=== PATIENT | male | born 1945 | race Caucasian/White ===

== ENCOUNTER 2017-08-03 17:52 | Inpatient (IN) | payer MEDICARE ==
[2017-08-03 19:43] LABS: Troponin I 0.039 ng/mL (< 0.028)
[2017-08-03 20:57] VITALS: BMI 33.5
[2017-08-03] MEDS ORDERED: Ondansetron HCl/PF 4 MG/2 ML Vial IVP PRN (21:02)
[2017-08-03] MEDS ORDERED: Acetaminophen 325 MG TAB PO PRN (21:02)
[2017-08-03] MEDS ORDERED: Ondansetron ODT 4 MG TAB SL PRN (21:02)
[2017-08-03] MEDS ORDERED: Aspirin 325 MG TAB PO SCH (21:15)
[2017-08-03] MEDS ORDERED: Dextrose 50% Abboject 50 ML SYRINGE SLOW IVP PRN (21:59)
[2017-08-03] MEDS ORDERED: Dextrose 5% in Water 1,000 ML IV PRN (21:59)
[2017-08-03] MEDS ORDERED: Gabapentin 300 MG CAP PO PRN (22:08)
[2017-08-03] MEDS ORDERED: Nitroglycerin 0.4 MG TAB (25 Tab Bottle) SL PRN (22:08)
[2017-08-03] MEDS ORDERED: HumaLOG 300 UNITS/3 ML VIAL SC PRN (22:13)
[2017-08-03] MEDS ORDERED: Furosemide 40 MG/4 ML VIAL SLOW IVP SCH (22:30)
[2017-08-03] MEDS ORDERED: Carvedilol 6.25 MG TAB PO SCH (22:30)
[2017-08-03] MEDS ORDERED: Lisinopril 5 MG TAB PO SCH (22:30)
[2017-08-03 23:12] LABS: Troponin I 0.038 ng/mL (< 0.028)
[2017-08-04 01:45] LABS: Troponin I 0.041 ng/mL (< 0.028)
[2017-08-04 05:07] LABS: #Eosinphils 0.2 thou/uL (0.0-0.7); #Lymphocytes 1.4 thou/uL (1.20-3.40); #Monocytes 0.6 thou/uL (0.11-0.59); %Basophils 0.4 % (0.0-1.0); %Eosinophils 2.8 % (0.0-10.0); %Lymphocytes 16.4 % (21.0-51.0); %Monocytes 7.5 % (0.0-10.0); Hematocrit 32.1 % (42.0-52.0); Mean Platelet Volume 8.4 fL (7.4-10.4); Red Blood Cell (RBC) Count 3.71 mill/uL (4.70-6.10); White Blood Cell (WBC) Count 8.3 thou/uL (4.8-10.8)
[2017-08-04 05:18] LABS: Anion Gap 18 mmol/L (10-20); BUN (Urea Nitrogen) 23 mg/dL (8.4-25.7); Calc. Creatinine Clearance 64 mL/min (70-130); Calcium 9.7 mg/dL (7.8-10.44); Carbon Dioxide 29 mmol/L (23-31); Chloride 99 mmol/L (98-107); Estimated GFR-MDRD 51
[2017-08-04] MEDS: Furosemide 40 MG/4 ML VIAL SLOW IVP SCH ×2 (06:33→15:49)
[2017-08-04] MEDS ORDERED: Dextrose 50% Abboject 50 ML SYRINGE SLOW IVP SCH (06:45)
[2017-08-04] MEDS: Levothyroxine Sodium 25 MCG TAB PO SCH (06:55)
[2017-08-04] MEDS ORDERED: Enoxaparin Sodium 30 MG/0.3 ML SYRINGE SC SCH (09:00)
[2017-08-04] MEDS ORDERED: FLU VACC TS2017-18 (>65YR) 0.5 ML SYRINGE IM ONE (09:00)
--- NOTE | 2017-08-04 09:00 | PDOC.FM ---
- Subjective Subjective: No acute events overnight. Occasional PACs and PVCs on the monitor, asymptomatic. Pt reports his breathing is improved since admission. Denies CP, NVDC, diaphoresis. Mild SOB, improved from admission. - Objective Vital Signs & Weight: Vital Signs (12 hours) Temp Pulse Resp BP BP Pulse Ox 08/04/17 04:04 97.7 F 89 22 H 156/71 H 95 08/03/17 23:41 84 08/03/17 23:20 97.8 F 89 20 126/64 93 L Weight Weight 93.984 kg I&O: 08/03/17 08/04/17 08/05/17 06:59 06:59 06:59 Intake Total 393 Output Total 1225 Balance -832 Result Diagrams: 08/04/17 01:09 08/04/17 01:09 <Demarco Pelaez - Last Filed: 08/04/17 08:58> - Objective Vital Signs & Weight: Vital Signs (12 hours) Temp Pulse Resp BP Pulse Ox 08/04/17 11:00 98.6 F 93 20 118/62 93 L Result Diagrams: 08/04/17 01:09 08/04/17 01:09 <Grant Valenzuela - Last Filed: 08/04/17 12:48> Phys Exam - Physical Examination Constitutional: NAD sitting with head elevated in bed HEENT: PERRLA, sclera anicteric Neck: no nodes hepatojugular reflux, JVD Respiratory: no rhonchi scattered rales, diminished bases Cardiovascular: RRR, no significant murmur, no rub Gastrointestinal: soft, non-tender, no distention, positive bowel sounds Musculoskeletal: pulses present, edema present 2+ pitting edema, b/l LE Neurological: non-focal, moves all 4 limbs <Demarco Pelaez - Last Filed: 08/04/17 08:58> Dx/Plan (1) CHF (congestive heart failure), NYHA class III Code(s): I50.9 - HEART FAILURE, UNSPECIFIED Status: Acute (2) COPD (chronic obstructive pulmonary disease) Status: Acute (3) CAD (coronary artery disease) of artery bypass graft Code(s): I25.810 - ATHEROSCLEROSIS OF CABG W/O ANGINA PECTORIS Status: Acute (4) Hx of CABG Status: Acute (5) CKD (chronic kidney disease) stage 3, GFR 30-59 ml/min Code(s): N18.3 - CHRONIC KIDNEY DISEASE, STAGE 3 (MODERATE) Status: Acute (6) Type 2 diabetes mellitus Status: Acute (7) Anemia Code(s): D64.9 - ANEMIA, UNSPECIFIED Status: Acute - Plan Plan: Pt symptomatically improved w/ iv lasix VSS, occasional PAC and PVc on event monitor, asymptomatic continue IV lasix, trend daily BMP cardiology consulted, appreciate recs elevated troponins, resolved. Likely 2/2 demand ischemia; will await card recs for copd continue prn duonebs q4hs, maintain saturation 88-92% pt will be kept NPO pending bedside swallow and cardiology recommendations DMII: continue levemir and SSI anemia, stable and asymptomatic, trend cbc <Demarco Pelaez - Last Filed: 08/04/17 08:58> Attending Addendum - Attending Addendum I personally evaluated the patient and discussed the management with Dr. Pelaez I agree with the History, Examination, Assessment and Plan documented above with any addition or exceptions noted below. 71 year old man with history of two previous CABG in 1990 and 2003. He presents now with worsening CHF over the last month, currently NYHA III. He still has significant fluid overload. We are diuresing him, and have asked Missael to see him. He may go to cath later today. <Grant Valenzuela - Last Filed: 08/04/17 12:48>
--- NOTE | 2017-08-04 09:10 | HP-2 ---
DATE OF ADMISSION: 08/03/2017 CODE STATUS: FULL. PRIMARY CARE PHYSICIAN: Dr. Tapia in [place]. ATTENDING PHYSICIAN: Juan Rey M.D. RESIDENT: Casandra Cole MD SPECIALISTS: Dr. Canas with Cardiology, Dr. Richey with Oncology CHIEF COMPLAINT: Shortness of breath and cough. HISTORY OF PRESENT ILLNESS: This is a 71-year-old male with past medical history of congestive hear t failure, COPD, diabetes type 2, hypertension, DE, pulmonary embolism and peripheral arterial disea se who presented to the ED because yesterday when he sat down to eat, he took one bite, but cannot r eally swallow, got really short of breath, so his got his oxygen for him. He started coughing really bad. Reported that he cannot eat anything yesterday last night. He did have a LifeVest on t hat he has been wearing for the last week in preparation for potential AICD placement. He reports t hat the shortness of breath has been going on for about a week ago, but got lot worse yesterday. He feels weak and dizzy. He was supposed to get iron treatment tomorrow at 11. He reports that he ge ts this about every month or so. He reports productive cough, increased swelling in his legs. He s leeps on 7-8 pillows at night. He has orthopnea and paroxysmal nocturnal dyspnea. He is requiring oxygen at home, uses 2 liters as needed. He has occasional falls due to dizziness about once every 2-3 weeks. PAST MEDICAL HISTORY: 1. History of PE that led to cardiac arrest with ROSC. 2. DE. 3. Hypertension. 4. Diabetes type 2. 5. CHF. 6. COPD. 7. Peripheral arterial disease status post stents. 8. Bilateral kidney masses. 9. Anemia secondary to GI bleed. 10. Peptic ulcer disease. PAST SURGICAL HISTORY: 1. CABG. 2. Partial kidney resection. 3. Stents in legs. ALLERGIES: CYCLOBENZAPRINE, IODINE, LASIX. MEDICATIONS: 1. Aspirin 81 mg. 2. Humalog 20 units b.i.d. 3. Lantus 50 units b.i.d. 4. [place] 10/325 mg t.i.d. p.r.n. 5. Gabapentin 300 mg t.i.d. p.r.n. 6. Lasix 60 mg daily. 7. Carvedilol 6.25 mg b.i.d. 8. Sinemet-CR. 9. Lipitor 40 mg daily. 10. Lisinopril 5 mg b.i.d. 11. Synthroid 25 mcg daily. 12. Sertraline 100 mg b.i.d. 13. Protonix 40 mg daily. 14. Nitrostat 0.4 mg sublingual every 5 minutes p.r.n. 15. Isosorbide mononitrate ER 60 mg daily. FAMILY HISTORY: Dad had DE. Mother had intestinal cancer. SOCIAL HISTORY: Used to smoke 5-6 packs per day for 38 years, but quit 28 years ago. Alcohol: [place] drinking 27 years ago. Denies drug use. REVIEW OF SYSTEMS: A 12-point review of systems was conducted and was negative except was mentioned in the HPI. PHYSICAL EXAMINATION: VITAL SIGNS: Blood pressure 166/83, pulse 84, respiratory rate 18, temperature 98.4, pulse ox 95% o n room air, current weight 96 kilograms. GENERAL: Alert and oriented x3, no acute distress, obese, appropriately interactive. EYES: Pupils equal, round, reactive to light. Extraocular muscles intact. Conjunctivae within nor mal limits. ENT: Nasal mucosa and oropharynx within normal limits. NECK: Supple. No lymphadenopathy. CARDIOVASCULAR: Regular rate and rhythm. No murmurs, displaced PMI. 2+ radial and pedal pulses. RESPIRATORY: Normal effort, no retractions. Crackles at bilateral bases. SKIN: Warm, dry, no cyanosis. ABDOMEN: Soft, nontender to palpation. Normoactive bowel sounds. No mass or distention. EXTREMITIES: No cyanosis. 2+ pitting edema to the knees bilaterally. MUSCULOSKELETAL: Structure and tone within normal limits, 5/5 muscle strength. Full range of motio n. NEUROLOGIC: No focal deficits. Sensation within normal limits. PSYCHIATRIC: Appropriate. LABORATORY DATA: WBC 9.6, hemoglobin 9.8, hematocrit 30.8, MCV 83, platelets 234. Sodium 144, pota ssium 3.8, chloride 103, CO2 30, BUN 22, creatinine 1.3, GFR 54, glucose 70, troponin 0.057, CK-MB 3 .2, calcium 9.4, total protein 7.2, albumin 4.1, total bilirubin 0.7, AST 17, ALT 13, alkaline phosp hatase 85, PTT 20.9, BNP 1383. TSH is 3.1676. EKG showed Q-waves, T-wave inversions, age undetermi damaris. Chest x-ray showed cardiomegaly, mild acute vascular congestion, increased limiting interstiti al changes, small pleural effusion bilaterally. ASSESSMENT AND PLAN: This 71-year-old male presents with: 1. Congestive heart failure exacerbation, elevated BNP. We will give IV Lasix b.i.d., fluid restri ction, daily weights, strict I's and O's. Oxygen as needed. Consult Dr. Canas in the morning. We will determine when most recent echo was. We will make n.p.o. at midnight. 2. Elevated troponins, indeterminate. No chest pain. We will trend. Monitor on tele. Consult Dr Rohan Canas in the morning. We will give nitro as needed, aspirin. Check EKG if the patient has ch est pain. 3. Chronic normocytic anemia secondary to peptic ulcer disease, stable. We will monitor. The yoan ent gets iron transfusions, was supposed to get one tomorrow. I will consider doing this inpatient. We will call PCP to get records. 4. Chronic kidney disease stage 3. This is around baseline. We will monitor. 5. Diabetes type 2. Continue home medications. Accu-Cheks a.c. and at bedtime, diabetic diet. 6. Hypertension. Continue home medications. 7. Peptic ulcer disease. Continue home medications. 8. Kidney masses. The patient sees Dr. Richey. 9. Chronic obstructive pulmonary disease, signs appear to be in exacerbation. Nebulizers p.r.n. 10. Venous thrombosis prophylaxis, Lovenox. DISPOSITION: Observation on tele. Symptomatic medication will be provided. History and physical exam as well as management were discussed with Dr. Rey.
[2017-08-04] MEDS: Carvedilol 6.25 MG TAB PO SCH ×2 (15:04→16:04)
[2017-08-04] MEDS: Insulin Detemir 100 UNITS/ML 50 UNITS in Pre-Filled Syringe 1 EACH SC SCH ×2 (15:05→21:22)
[2017-08-04] MEDS: Lisinopril 5 MG TAB PO SCH ×2 (15:05→21:17)
[2017-08-04] MEDS: Carbidopa/Levodopa CR 50-200 mg Tablet PO SCH (15:50)
[2017-08-04] MEDS: Aspirin 325 MG TAB PO SCH (15:50)
[2017-08-04] MEDS: Atorvastatin Calcium 40 MG TAB PO SCH (15:50)
[2017-08-04] MEDS: HYDROcodone/Acetaminophen 10/325 mg Tablet PO PRN (16:03)
--- NOTE | 2017-08-04 18:46 | CON ---
DATE OF CONSULTATION: 08/04/2017 REASON FOR CONSULTATION: Acute on chronic systolic heart failure. HISTORY OF PRESENT ILLNESS: Mr. Phillips is a very pleasant 71-year-old gentleman with a previous histor y of CAD, status post stent placement in addition to bypass surgery and cardiomyopathy, who recently presented with congestive heart failure type symptoms. He had increased shortness of breath. No c hest pain or pressure noted. He has had a recent workup in the office with the last stress study pe rformed on 07/15/2017. We did find scar along the inferior wall with no ischemia present. His last stress study was in 2013 with scar was still noted. His daughter did state that they were told on his bypass that he had a area noted to his heart. Current report is not available. PAST MEDICAL HISTORY: Inferior AK, status post bypass surgery; CAD; hypertension; hyperlipidemia; d iabetes mellitus; previous tobacco abuse; DVT; GI bleed; hiatal hernia. PAST SURGICAL HISTORY: Eye surgery, back surgery. ALLERGIES: IODINE, PENICILLIN, LATEX. CURRENT MEDICATIONS: Include albuterol, Lantus, Humalog, lisinopril, Sinemet, aspirin, Prevacid, hy drocodone, gabapentin, Nitrostat, atorvastatin, pantoprazole, sertraline, Ambien, Spiriva, Advair, L asix, Imdur, carvedilol. REVIEW OF SYSTEMS: Ten-point review of systems is reviewed and as above, otherwise negative. PHYSICAL EXAMINATION: GENERAL: Patient is a pleasant male who is in no acute distress. The patient appears his stated ag e. VITAL SIGNS: Blood pressure 112/59, pulse 79, temperature 97.6. NEUROLOGIC: The patient is alert and oriented times 3 with no focal neurologic deficits. HEENT: Sclerae without icterus. Mouth has moist mucous membranes with normal pallor. NECK: No JVD. Carotid upstroke brisk. No bruits bilaterally. LUNGS: Mild crackles noted bilaterally. BACK: No scoliosis or kyphosis. CARDIAC: Regular rate and rhythm with normal S1 and S2. No S3 or S4 noted. No significant rubs, m urmurs, thrills, or gallops noted throughout the precordium. PMI is not displaced. There is no par asternal heave. ABDOMEN: Soft, nontender, nondistended. No peritoneal signs present. No hepatosplenomegaly. No a bnormal striae. EXTREMITIES: 2+ femoral and 2+ dorsalis pedis pulses. No cyanosis, clubbing, or edema. SKIN: No gross abnormalities. PERTINENT LABORATORY DATA: Hemoglobin 9.7, creatinine 1.38. IMPRESSION: 1. Acute on chronic systolic heart failure with last left ventricular ejection fraction on echo karel ed 07/06/2017 of 25%-30%. 2. Coronary artery disease. 3. Previous inferior myocardial infarction. RECOMMENDATIONS: At this point, I would recommend conservative therapy. He has had an inferior AK, which corresponds to a scar noted in the inferior wall. Would treat medically. He has been given Lasix appropriately. Would continue beta-thai therapy and TOYIN inhibitor therapy. We will also t ry and obtain records from [place] on his bypass graft and previous stent placement.
[2017-08-04] MEDS: Enoxaparin Sodium 30 MG/0.3 ML SYRINGE SC SCH (21:16)
[2017-08-05] MEDS: Levothyroxine Sodium 25 MCG TAB PO SCH (05:51)
[2017-08-05] MEDS: Furosemide 40 MG/4 ML VIAL SLOW IVP SCH (05:51)
[2017-08-05 06:17] LABS: Anion Gap 18 mmol/L (10-20); BUN (Urea Nitrogen) 21 mg/dL (8.4-25.7); Calc. Creatinine Clearance 70 mL/min (70-130); Calcium 9.2 mg/dL (7.8-10.44); Carbon Dioxide 26 mmol/L (23-31); Chloride 99 mmol/L (98-107); Estimated GFR-MDRD 56
[2017-08-05 06:25] LABS: #Eosinphils 0.3 thou/uL (0.0-0.7); #Monocytes 0.9 thou/uL (0.11-0.59); #Neutrophils 4.2 thou/uL (1.40-6.50); %Basophils 0.3 % (0.0-1.0); %Eosinophils 3.8 % (0.0-10.0); %Lymphocytes 27.4 % (21.0-51.0); %Monocytes 12.2 % (0.0-10.0); Hematocrit 36.6 % (42.0-52.0); Mean Platelet Volume 9.6 fL (7.4-10.4); Red Blood Cell (RBC) Count 4.34 mill/uL (4.70-6.10); White Blood Cell (WBC) Count 7.4 thou/uL (4.8-10.8)
[2017-08-05] MEDS: Atorvastatin Calcium 40 MG TAB PO SCH (08:54)
[2017-08-05] MEDS: Enoxaparin Sodium 30 MG/0.3 ML SYRINGE SC SCH (08:54)
[2017-08-05] MEDS: Aspirin 325 MG TAB PO SCH (08:55)
[2017-08-05] MEDS: Carvedilol 6.25 MG TAB PO SCH (08:55)
[2017-08-05] MEDS: Carbidopa/Levodopa CR 50-200 mg Tablet PO SCH (08:56)
[2017-08-05] MEDS: Lisinopril 5 MG TAB PO SCH (08:56)
[2017-08-05] MEDS: Insulin Detemir 100 UNITS/ML 50 UNITS in Pre-Filled Syringe 1 EACH SC SCH ×2 (08:57→20:44)
[2017-08-05] MEDS: HYDROcodone/Acetaminophen 10/325 mg Tablet PO PRN (10:17)
--- NOTE | 2017-08-05 10:25 | PDOC.FM ---
- Subjective Subjective: No acute events overnight. Pt states he feels fatigued, but no cp or sob, NVDC. Pt has life vest on. Per cards, most recent ef 20-25%. - Objective Vital Signs & Weight: Vital Signs (12 hours) Temp Pulse Resp BP BP Pulse Ox 08/05/17 08:56 72 107/56 L 08/05/17 08:55 107/56 L 08/05/17 08:00 98.2 F 72 18 107/56 L 92 L 08/05/17 04:00 98.0 F 78 20 107/59 L 92 L Weight Weight 94.302 kg I&O: 08/04/17 08/05/17 08/06/17 06:59 06:59 06:59 Intake Total 480 Output Total 1625 Balance -1145 Result Diagrams: 08/05/17 05:44 08/05/17 05:44 <Demarco Pelaez - Last Filed: 08/05/17 10:32> - Objective Vital Signs & Weight: Vital Signs (12 hours) Temp Pulse Resp BP BP Pulse Ox 08/05/17 08:56 72 107/56 L 08/05/17 08:55 107/56 L 08/05/17 08:00 98.2 F 72 18 107/56 L 92 L 08/05/17 04:00 98.0 F 78 20 107/59 L 92 L Weight Weight 207 lb 14.4 oz I&O: 08/04/17 08/05/17 08/06/17 06:59 06:59 06:59 Intake Total 480 Output Total 1625 Balance -1145 Result Diagrams: 08/05/17 05:44 08/05/17 05:44 <Grant Valenzuela - Last Filed: 08/05/17 10:38> Phys Exam - Physical Examination Constitutional: NAD HEENT: PERRLA, moist MMs, sclera anicteric Neck: no JVD Respiratory: no wheezing, no rhonchi scattered rales Cardiovascular: RRR, no significant murmur, no rub, gallop Gastrointestinal: soft, non-tender, no distention, positive bowel sounds Musculoskeletal: no edema, pulses present Neurological: non-focal, normal sensation, moves all 4 limbs Skin: no rash <Demarco Pelaez - Last Filed: 08/05/17 10:32> Dx/Plan (1) CHF (congestive heart failure), NYHA class III Code(s): I50.9 - HEART FAILURE, UNSPECIFIED Status: Acute (2) COPD (chronic obstructive pulmonary disease) Status: Acute (3) CAD (coronary artery disease) of artery bypass graft Code(s): I25.810 - ATHEROSCLEROSIS OF CABG W/O ANGINA PECTORIS Status: Acute (4) Hx of CABG Status: Acute (5) CKD (chronic kidney disease) stage 3, GFR 30-59 ml/min Code(s): N18.3 - CHRONIC KIDNEY DISEASE, STAGE 3 (MODERATE) Status: Acute (6) Type 2 diabetes mellitus Status: Acute (7) Anemia Code(s): D64.9 - ANEMIA, UNSPECIFIED Status: Acute - Plan Plan: continue cintia, diuretic, coreg add spironolactone, monitor is/os, daily weights referral for heart failure clinic [facility] for copd, add incentive spirometry whil inpatient, maintain sat 88- 92% ckd, trend daily bmp dm, continue levemir and mod SSI cardiuology consulted, appreciate recs anemia, trend cbc ppx lovenox 40mg sc qd <Demarco Pelaez - Last Filed: 08/05/17 10:32> Attending Addendum - Attending Addendum I personally evaluated the patient and discussed the management with Dr. Pelaez I agree with the History, Examination, Assessment and Plan documented above with any addition or exceptions noted below. Patient is better, but has not diuresed as much as we would have liked. We are adding spironolactone to his regimen today. Continue other meds as before. Current EF is 20-25% and cardiology feels we need to maximize medical management. <Grant Valenzuela - Last Filed: 08/05/17 10:38>
[2017-08-05] MEDS ORDERED: Spironolactone 25 MG TAB PO SCH (10:30)
--- NOTE | 2017-08-05 11:28 | PRG ---
DATE OF SERVICE: 08/05/2017 Mr. Phillips is doing better. His shortness of breath improved. No chest pain or pressure noted. PHYSICAL EXAMINATION: VITAL SIGNS: Blood pressure 107/56, pulse 70, temperature 98.2. LUNGS: Clear to auscultation. CARDIAC: Regular rate and rhythm. ABDOMEN: Soft, nontender. EXTREMITIES: No edema. IMPRESSION: 1. Acute on chronic systolic heart failure. 2. Coronary artery disease. 3. Status post bypass surgery. RECOMMENDATIONS: I reviewed his previous notes from [place]. He underwent coronary angiography 1 y ear ago. He was found to have moderate disease of the circumflex artery and severe disease of the p roximal LAD. He did have a CORNEJO to the LAD that is patent. He has a chronically occluded right cor onary artery. His stress study performed in the office last month did suggest scar to the inferior wall, but no ischemia present to the LAD or circumflex distribution. From my standpoint, I would de crease aspirin to 81 q.a.m. Continue atorvastatin, carvedilol, in addition to lisinopril. I would a lso recommend continuing isosorbide. We will change his Lasix to p.o.
[2017-08-05] MEDS: Furosemide 40 MG TAB PO SCH (13:34)
[2017-08-06] MEDS: Levothyroxine Sodium 25 MCG TAB PO SCH (05:27)
[2017-08-06 05:58] LABS: #Eosinphils 0.4 thou/uL (0.0-0.7); #Lymphocytes 1.5 thou/uL (1.20-3.40); #Neutrophils 5.5 thou/uL (1.40-6.50); %Basophils 0.3 % (0.0-1.0); %Eosinophils 4.2 % (0.0-10.0); %Lymphocytes 17.9 % (21.0-51.0); %Monocytes 11.8 % (0.0-10.0); Hematocrit 32.5 % (42.0-52.0); Mean Platelet Volume 9.3 fL (7.4-10.4); White Blood Cell (WBC) Count 8.3 thou/uL (4.8-10.8)
[2017-08-06 06:09] LABS: Anion Gap 16 mmol/L (10-20); BUN (Urea Nitrogen) 24 mg/dL (8.4-25.7); Calc. Creatinine Clearance 60 mL/min (70-130); Calcium 8.6 mg/dL (7.8-10.44); Carbon Dioxide 23 mmol/L (23-31); Chloride 101 mmol/L (98-107); Estimated GFR-MDRD 47
[2017-08-06] MEDS ORDERED: Spironolactone 25 MG TAB PO SCH (08:00)
[2017-08-06] MEDS: Atorvastatin Calcium 40 MG TAB PO SCH (08:46)
[2017-08-06] MEDS: Aspirin 325 MG TAB PO SCH (08:46)
[2017-08-06] MEDS: Furosemide 40 MG TAB PO SCH ×2 (08:46→13:32)
[2017-08-06] MEDS: Carbidopa/Levodopa CR 50-200 mg Tablet PO SCH (08:47)
[2017-08-06] MEDS: Insulin Detemir 100 UNITS/ML 50 UNITS in Pre-Filled Syringe 1 EACH SC SCH (08:51)
[2017-08-06] MEDS: Lisinopril 5 MG TAB PO SCH (08:51)
--- NOTE | 2017-08-06 08:52 | PDOC.FM ---
- Subjective Subjective: No acute events overnight. Pt reports he is feeling better today. Denies cp, sob. NVDC. Discussed importance of medication and fluid/dietary restriction adherence, pt agreeable. - Objective Vital Signs & Weight: Vital Signs (12 hours) Temp Pulse Resp BP BP Pulse Ox 08/06/17 07:33 98 F 81 17 116/65 99 08/06/17 07:00 78 14 98 08/06/17 04:00 98.2 F 70 18 113/58 L 99 08/05/17 23:51 98.4 F 84 20 108/58 L 100 Weight Weight 93.894 kg I&O: 08/05/17 08/06/17 08/07/17 06:59 06:59 06:59 Intake Total 480 1320 Output Total 1625 1430 Balance -1145 -110 Result Diagrams: 08/06/17 05:39 08/06/17 05:39 <Demarco Pelaez - Last Filed: 08/06/17 08:54> - Objective Vital Signs & Weight: Vital Signs (12 hours) Temp Pulse Resp BP BP Pulse Ox 08/06/17 10:14 86 16 96 08/06/17 08:51 81 08/06/17 08:00 98 F 81 18 99 08/06/17 07:33 98 F 81 17 116/65 99 08/06/17 07:00 78 14 98 08/06/17 04:00 98.2 F 70 18 113/58 L 99 08/05/17 23:51 98.4 F 84 20 108/58 L 100 Weight Weight 207 lb I&O: 08/05/17 08/06/17 08/07/17 06:59 06:59 06:59 Intake Total 480 1320 Output Total 1625 1430 Balance -1145 -110 Result Diagrams: 08/06/17 05:39 08/06/17 05:39 <Grant Valenzuela - Last Filed: 08/06/17 11:25> Phys Exam - Physical Examination Constitutional: NAD HEENT: PERRLA, moist MMs, sclera anicteric Neck: no nodes, no JVD Respiratory: no wheezing, no rales, no rhonchi, clear to auscultation bilateral Cardiovascular: RRR, no significant murmur, no rub Gastrointestinal: soft, non-tender, no distention, positive bowel sounds Musculoskeletal: pulses present, edema present 1+ to 2, pitting, improved Neurological: non-focal, normal sensation, moves all 4 limbs Psychiatric: normal affect <Demarco Pelaez - Last Filed: 08/06/17 08:54> Dx/Plan (1) CHF (congestive heart failure), NYHA class III Code(s): I50.9 - HEART FAILURE, UNSPECIFIED Status: Acute (2) COPD (chronic obstructive pulmonary disease) Status: Acute (3) CAD (coronary artery disease) of artery bypass graft Code(s): I25.810 - ATHEROSCLEROSIS OF CABG W/O ANGINA PECTORIS Status: Acute (4) Hx of CABG Status: Acute (5) CKD (chronic kidney disease) stage 3, GFR 30-59 ml/min Code(s): N18.3 - CHRONIC KIDNEY DISEASE, STAGE 3 (MODERATE) Status: Acute (6) Type 2 diabetes mellitus Status: Acute (7) Anemia Code(s): D64.9 - ANEMIA, UNSPECIFIED Status: Acute - Plan Plan: continue statin, coreg, lisinopril, lasix and spironolactone po, per cardiology recs aspirin switched to 81mg/day, per cardiology recs continue life vest pt stable, vs wnl continues to diurese anemia stable and asymptomatic, recommend op f/u elevated creatinine w/in pts baseline, recommend op f/u, otherwise stable <Demarco Pelaez - Last Filed: 08/06/17 08:54> Attending Addendum - Attending Addendum I personally evaluated the patient and discussed the management with Dr. Pelaez I agree with the History, Examination, Assessment and Plan documented above with any addition or exceptions noted below. He is stable and will be going home today. We have added Spironolactone and changed Lasix to 40 mg bid. He has been cautioned about salt. He will followup with cardiology and his primary care physician in [place]. <Grant Valenzuela - Last Filed: 08/06/17 11:25>
[2017-08-06] MEDS ORDERED: Aspirin 81 mg Enteric Coated Tablet PO SCH (09:00)
[2017-08-06] MEDS ORDERED: Enoxaparin Sodium 40 MG/0.4 ML SYRINGE SC SCH (09:00)
[2017-08-06 11:25] VITALS: BP 96/52; TEMP 98.4
--- NOTE | 2017-08-06 14:13 | PRG ---
DATE OF SERVICE: 08/06/2017 Mr. Phillips is doing well. His shortness of breath is back to baseline. PHYSICAL EXAMINATION: VITAL SIGNS: Blood pressure 160/65, pulse 81, temperature 98. LUNGS: Clear to auscultation. CARDIAC: Regular rate and rhythm. ABDOMEN: Soft, nontender, nondistended. EXTREMITIES: No edema. IMPRESSION: 1. Acute on chronic systolic heart failure. 2. Ischemic cardiomyopathy. RECOMMENDATIONS: Mr. Phillips is back to baseline. Continue current treatment with aspirin, atorvastati n in addition Coreg and lisinopril. Continue lipase. Plan is to follow up with Mr. Phillips in the next 1-2 weeks.
--- NOTE | 2017-08-09 10:08 | DIS-2 ---
LOCATION: [place], [place]. DATE OF SERVICE: 08/06/2017 DATE OF ADMISSION: 08/04/2017 DATE OF DISCHARGE: 08/06/2017 RESIDENT PHYSICIAN: Demarco Pelaez D.O. ADMITTING ATTENDING: Dr. Grant vital. DISCHARGE ATTENDING: Dr. Grant Valenzuela. CONSULTATIONS: Cardiology, Dr. Pedro Canas. PROCEDURES: None. PRIMARY DIAGNOSES: 1. Congestive heart failure. 2. Elevated troponins. SECONDARY DIAGNOSES: 1. Coronary artery disease, status post coronary artery bypass graft. 2. History of coronary artery bypass grafting. 3. Chronic kidney disease, stage 3. 4. Type 2 diabetes mellitus. DISCHARGE MEDICATIONS: 1. Aspirin 81 mg p.o. daily. 2. Atorvastatin 40 mg daily. 3. Sinemet 25 mg/100 mg 1 tab p.o. daily. 4. Coreg 6.25 mg p.o. b.i.d. 5. Furosemide 40 mg b.i.d. 6. Gabapentin 300 mg t.i.d. 7. [place] one tab p.o. t.i.d. p.r.n. for pain. 8. Humalog 20 units subcutaneous q.a.m. at bedtime. 9. Lantus 50 units subcutaneous q.a.m. and at bedtime 10. DuoNebs p.r.n. 11. Isosorbide mononitrate 60 mg p.o. daily. 12. Levothyroxine 25 mcg p.o. daily. 13. Lisinopril 5 mg p.o. daily. 14. Multivitamin 1 capsule daily. 15. Nitrostat 0.4 mg every 5 minutes p.r.n. 16. Protonix 40 mg p.o. daily. 17. Sertraline 100 mg p.o. b.i.d. 18. Spironolactone 25 mg p.o. q.a.m. with meals. 19. Spiriva 18 mcg inhaled b.i.d. DISCONTINUED MEDICATIONS: None. HISTORY OF PRESENT ILLNESS/HOSPITAL COURSE: A 71-year-old male with past medical history of CHF, CO PD, type 2 diabetes, hypertension, prior [place], status post CABG, peripheral vascular disease, presente d with difficulty swallowing, shortness of breath, and cough. The patient reports he was wearing [place] LifeVest when this episode occurred. The patient also reports increased swelling in his legs as w ell as increased head elevation to sleep at night and increased oxygen requirement. On presentation to the ER, the patient was found to have an elevated troponin of 0.039, which subsequently trended up to 0.041 and then trended back down. Additionally, the patient was found to have a hemoglobin of 9.7 on admission, however, that remained stable throughout his hospital stay, it was 9.9 on dischar ge. The patient had 2+ pitting edema bilateral lower extremities as well as increased oxygen demand so w as diuresed with IV Lasix and his Coreg, lisinopril, and Lasix were titrated for maximal benefit. A dditionally, the patient was started on spironolactone. His BMP remained within normal limits throu ghout his stay. The patient has 94.3 kilograms of admission weight and 93.894 kilograms of discharg e weight. Patient diuresed approximately 3.5 to 4 liters throughout his 2-day hospital stay. His v itals blood pressure on admission was 156/70 which trended down with the diuresis as well as medicat ion titration. His blood pressure was 116/65 on the morning of admission. DISPOSITION: Stable. DISCHARGE INSTRUCTIONS: 1. Location: Home. 2. Diet: The patient was discharged with a diet of fluid-restrictive diet with a heart-healthy estela betic diet, no salt added, and a fluid restriction of less than 1800 mL per day. 3. Activity: As tolerated. 4. Followup: Follow up with primary care provider, Dr. Swapnil Tapia, 3 days following discharge. 4. Follow up with Dr. Pedro Canas in 14 days. 6. Follow up with [facility] within 7 days as well as [facility] on 08/24/2017 after discharge.
--- NOTE | 2017-08-11 21:49 | EKG ---
Test Reason : Blood Pressure : / mmHG Vent. Rate : 089 BPM Atrial Rate : 089 BPM P-R Int : 150 ms QRS Dur : 114 ms QT Int : 410 ms P-R-T Axes : 049 024 092 degrees QTc Int : 498 ms Normal sinus rhythm Cannot rule out Inferior infarct (cited on or before 30-SEP-2012) Cannot rule out Anterior infarct (cited on or before 30-SEP-2012) Abnormal ECG When compared with ECG of 05-APR-2016 03:02, Nonspecific T wave abnormality, worse in Inferior leads Confirmed by LAURIE LINDA (2) on 08/11/2017 9:48:48 PM Referred By: Confirmed By:LAURIE LINDA
--- NOTE | 2017-08-11 21:49 | EKG ---
Test Reason : Blood Pressure : / mmHG Vent. Rate : 144 BPM Atrial Rate : 076 BPM P-R Int : 000 ms QRS Dur : 122 ms QT Int : 334 ms P-R-T Axes : 000 024 048 degrees QTc Int : 517 ms Wide QRS tachycardia Cannot rule out Inferior infarct , age undetermined Cannot rule out Anterior infarct , age undetermined Abnormal ECG When compared with ECG of 03-AUG-2017 23:58, (Unconfirmed) Wide QRS tachycardia has replaced Sinus rhythm Vent. rate has increased BY 55 BPM Confirmed by LAURIE LINDA ([id number]) on 08/11/2017 9:49:02 PM Referred By: Confirmed By:LAURIE LINDA
== END 2017-08-06 15:44 | disposition home or self-care (01) | DRG 291 ==
LOC: ERS 17:52 → 2SW 19:36 → OBSVTOIN 08-04 08:14 → 2NO 08-04 14:43
PROVIDERS: ADMIT Family Medicine; ATTEND Family Medicine
DX: I13.0 Hypertensive heart and chronic kidney disease with heart failure and stage 1 through stage 4 chronic kidney disease, or unspecified chronic kidney disease (principal); I50.23 Acute on chronic systolic (congestive) heart failure; E11.22 Type 2 diabetes mellitus with diabetic chronic kidney disease; I25.82 Chronic total occlusion of coronary artery; I47.1 Supraventricular tachycardia; I25.810 Atherosclerosis of coronary artery bypass graft(s) without angina pectoris; Z99.81 Dependence on supplemental oxygen; N18.3 Chronic kidney disease, stage 3 (moderate); I25.2 Old myocardial infarction; Z86.711 Personal history of pulmonary embolism; Z91.81 History of falling; Z95.1 Presence of aortocoronary bypass graft; Z90.5 Acquired absence of kidney; Z87.891 Personal history of nicotine dependence; Z88.8 Allergy status to other drugs, medicaments and biological substances; Z91.041 Radiographic dye allergy status; D64.9 Anemia, unspecified; K27.9 Peptic ulcer, site unspecified, unspecified as acute or chronic, without hemorrhage or perforation; N28.89 Other specified disorders of kidney and ureter; I25.5 Ischemic cardiomyopathy; Z86.718 Personal history of other venous thrombosis and embolism; Z88.0 Allergy status to penicillin; I73.9 Peripheral vascular disease, unspecified; J44.9 Chronic obstructive pulmonary disease, unspecified; Z87.01 Personal history of pneumonia (recurrent)
CPT/HCPCS: 36415; 36416; 80048; 84484; 85025; 90471; 90682; 93005; 93010; 93798; 94640; 99285; G0008; G8996-GN-CJ; G8997-GN-CJ; J1610; J1650; J1815; J1940; J7620; Q2036

== ENCOUNTER 2018-01-04 10:24 | Day surgery (SDC) | payer MEDICARE ==
[2018-01-03 12:08] VITALS: BMI 32.3
[2018-01-04 11:17] LABS: PTT 26.1 SEC (22.9-36.1); Prothrombin Time 13.2 SEC (12.0-14.7)
[2018-01-04 11:20] LABS: Hemoglobin 11.9 g/dL (14.0-18.0); Mean Corpuscular HGB CONC 31.1 g/dL (32.0-36.0); Mean Corpuscular Hemoglobin 23.2 pg (27.0-31.0); Mean Corpuscular Volume 74.6 fl (80.0-94.0); Mean Platelet Volume 10.1 fL (7.4-10.4); Platelet Count 206 thou/uL (130-400); RBC Distribution Width 17.2 % (11.5-14.5); Red Blood Cell (RBC) Count 5.13 mill/uL (4.70-6.10); White Blood Cell (WBC) Count 12.1 thou/uL (4.8-10.8)
[2018-01-04 11:23] LABS: Anion Gap 15 mmol/L (10-20); BUN (Urea Nitrogen) 25 mg/dL (8.4-25.7); Calc. Creatinine Clearance 58 mL/min (70-130); Calcium 10.1 mg/dL (7.8-10.44); Carbon Dioxide 27 mmol/L (23-31); Chloride 94 mmol/L (98-107); Estimated GFR-MDRD 47; Glucose 475 mg/dL (83-110); Potassium 5.1 mmol/L (3.5-5.1); Sodium 131 mmol/L (136-145)
[2018-01-04] MEDS ORDERED: Lidocaine 1% (PF) 30 ML VIAL ONE (11:56)
[2018-01-04] MEDS ORDERED: CEFAZOLIN/Water 2 GM/20 ML SYRINGE ONE (11:57)
[2018-01-04] MEDS ORDERED: Clindamycin/D5W 900 MG in Premix Bag 1 BAG IVPB SCH (12:00)
[2018-01-04] MEDS ORDERED: HumaLOG 300 UNITS/3 ML VIAL SC SCH (12:00)
[2018-01-04] MEDS ORDERED: Insulin Regular 300 UNITS/3 ML VIAL ONE (12:07)
[2018-01-04] MEDS ORDERED: HumaLOG 300 UNITS/3 ML VIAL ONE (12:08)
[2018-01-04] MEDS ORDERED: levETIRAcetam 500 MG/100 ML PREMIX BAG ONE (12:40)
[2018-01-04] MEDS ORDERED: Ketamine 50 MG/ML VIAL ONE (12:40)
[2018-01-04] MEDS ORDERED: Midazolam HCl 5 mg/5 ml Vial ONE (12:40)
[2018-01-04] MEDS ORDERED: Esmolol 100 MG/10 ML VIAL ONE (13:18)
[2018-01-04] MEDS ORDERED: PROPOFOL 200 MG/20 ML VIAL ONE (13:18)
[2018-01-04] MEDS ORDERED: hydrALAZINE 20 MG/ML VIAL ONE (13:35)
--- NOTE | 2018-01-04 14:41 | RAD ---
SINGLE VIEW OF THE CHEST: COMPARISON: 04/04/16. HISTORY: Status post ICD placement for cardiac arrhythmias. FINDINGS: A single view of the chest shows an enlarged but stable cardiomediastinal silhouette. The patient is status post sternotomy. There has been interval placement of a left-sided pacemaker with its tip in the right ventricle. No pneumothorax is seen. Increased interstitial lung markings are seen. A ca lcified granuloma projects over the left lung base. IMPRESSION: Status post pacemaker placement without evidence of complication. POS: JOLANTA
[2018-01-04] MEDS ORDERED: HYDROcodone/Acetaminophen 10/325 mg Tablet PO PRN (14:50)
[2018-01-04] MEDS ORDERED: HYDROcodone/Acetaminophen 10/325 mg Tablet ONE (14:52)
[2018-01-04] MEDS ORDERED: Dextrose 50% Abboject 50 ML SYRINGE IVP PRN (15:05)
[2018-01-04] MEDS ORDERED: Dextrose 5% in Water 1,000 ML IV PRN (15:05)
[2018-01-04] MEDS ORDERED: HumaLOG 300 UNITS/3 ML VIAL SC PRN (15:05)
[2018-01-04] MEDS ORDERED: Temazepam 15 MG CAP PO PRN (15:08)
[2018-01-04] MEDS ORDERED: Bisacodyl 10 MG SUPP PR PRN (15:08)
[2018-01-04] MEDS ORDERED: Acetaminophen 325 MG TAB PO PRN (15:08)
[2018-01-04] MEDS ORDERED: diphenhydrAMINE 25 MG CAP PO PRN (15:08)
[2018-01-04] MEDS ORDERED: Mag-Al 1200 mg/1200 mg/30 ML UDCUP PO PRN (15:08)
[2018-01-04] MEDS ORDERED: Ondansetron HCl/PF 4 MG/2 ML Vial IVP PRN (15:08)
[2018-01-04] MEDS ORDERED: Nitroglycerin 0.4 MG TAB (25 Tab Bottle) SL PRN (15:08)
[2018-01-04] MEDS ORDERED: Silver Sulfadiazine 1% Cream 50 GM JAR TOP PRN (15:08)
[2018-01-04] MEDS ORDERED: traMADol HCl 50 MG TAB PO PRN (15:08)
[2018-01-04] MEDS ORDERED: Bisacodyl 5 MG TAB PO PRN (15:08)
--- NOTE | 2018-01-05 07:58 | EKG ---
Test Reason : PREOP Blood Pressure : / mmHG Vent. Rate : 090 BPM Atrial Rate : 090 BPM P-R Int : 170 ms QRS Dur : 118 ms QT Int : 374 ms P-R-T Axes : 057 046 091 degrees QTc Int : 457 ms Normal sinus rhythm Possible Left atrial enlargement Possible Inferior infarct , age undetermined Cannot rule out Anterior infarct , age undetermined Abnormal ECG When compared with ECG of 04-AUG-2017 00:29, Vent. rate has decreased BY 54 BPM Confirmed by MICHELET VELASQUEZ ([id number]) on 01/05/2018 7:57:53 AM Referred By: [facility] Confirmed By:MICHELET VELASQUEZ
== END 2018-01-04 17:50 | disposition home or self-care (01) ==
LOC: CCL 10:24
PROVIDERS: ATTEND Internal Medicine Cardiovascular Disease
PROC: 0JH608Z Insertion of Defibrillator Generator into Chest Subcutaneous Tissue and Fascia, Open Approach (ICD-10-PCS; principal; 2018-01-04)
PROC: 02HK3KZ Insertion of Defibrillator Lead into Right Ventricle, Percutaneous Approach (ICD-10-PCS; 2018-01-04)
DX: I13.0 Hypertensive heart and chronic kidney disease with heart failure and stage 1 through stage 4 chronic kidney disease, or unspecified chronic kidney disease (principal); E11.22 Type 2 diabetes mellitus with diabetic chronic kidney disease; N18.3 Chronic kidney disease, stage 3 (moderate); I50.22 Chronic systolic (congestive) heart failure; I25.10 Atherosclerotic heart disease of native coronary artery without angina pectoris; I25.2 Old myocardial infarction; J44.9 Chronic obstructive pulmonary disease, unspecified; E78.5 Hyperlipidemia, unspecified; Z91.040 Latex allergy status; Z91.041 Radiographic dye allergy status; Z88.8 Allergy status to other drugs, medicaments and biological substances; Z79.899 Other long term (current) drug therapy; Z79.82 Long term (current) use of aspirin; Z79.4 Long term (current) use of insulin; Z95.1 Presence of aortocoronary bypass graft
CPT/HCPCS: 33249; 71045; 80048; 82962; 85027; 85610; 85730; 93005; 93641; 96372; C1777; C1786; 36416; 93010; J0360; J1815; J1953; J2001; J2250; J2704; J3490

== ENCOUNTER 2018-02-26 23:22 | Inpatient (IN) | payer MEDICARE ==
[2018-02-27 00:35] LABS: Troponin I 0.632 ng/mL (< 0.028)
[2018-02-27] MEDS ORDERED: Dextrose 50% Abboject 50 ML SYRINGE SLOW IVP PRN (01:23)
[2018-02-27] MEDS ORDERED: Acetaminophen 325 MG TAB PO PRN (01:23)
[2018-02-27] MEDS ORDERED: Bisacodyl 5 MG TAB PO PRN (01:23)
[2018-02-27] MEDS ORDERED: Dextrose 5% in Water 1,000 ML IV PRN (01:23)
[2018-02-27] MEDS ORDERED: Ondansetron HCl/PF 4 MG/2 ML Vial IVP PRN (02:36)
[2018-02-27] MEDS ORDERED: Ondansetron ODT 4 MG TAB SL PRN (02:36)
[2018-02-27 02:48] VITALS: BMI 30.9
--- NOTE | 2018-02-27 03:15 | HP ---
PRIMARY CARE PROVIDER: Ted Garcia M.D. PRIMARY PATIENT TRANSITION SPECIALIST: Dr. Canas. CHIEF COMPLAINT: Palpitations. HISTORY OF PRESENT ILLNESS: Mr. Phillips is a pleasant 72-year-old gentleman who was seen at [facility] on 02/27/2018 following transfer from [facility]. He reports that over the last 2 days he had palpitations. He describes them as a sensation of his he art fluttering; lasting about 20-30 minutes, slowly resolving and again starting after a few minutes. He cannot recall any aggravating or relieving factors. He specifically denies any chest pain. He denies any fevers or chills. He reports feeling nauseous and vomiting multiple times. He also repor ts lightheadedness. He also reports generalized weakness. He presented to the Emergency Room at [facility] because of the above complaints. REVIEW OF SYSTEMS: All other systems reviewed and found to be negative. PAST MEDICAL HISTORY: Significant for multiple GI bleeding episodes in the past; coronary artery dis ease, status post coronary artery bypass graft; bilateral renal masses, status post excision; pulmona ry embolism, status post IVC filter in 2011; chronic systolic heart failure; hypertension; diabetes m ellitus, type 2; COPD; chronic respiratory failure, on home oxygen. PAST SURGICAL HISTORY: Multiple EGDs and colonoscopies, IVC filter for DVT and PE, multiple cardiac catheterizations, AICD placement, excision of renal masses. ALLERGIES: FLEXERIL, PLAVIX, IODINE and LATEX. CURRENT MEDICATIONS: Carbidopa/levodopa 25/100 mg daily, atorvastatin 40 mg daily, sertraline 100 mg daily, Protonix 40 mg daily, isosorbide mononitrate 60 mg daily, Coreg 6.25 mg daily, [place] 10/325 m g as needed, lisinopril 10 mg daily, Lasix 20 mg daily, Humalog insulin by sliding scale, and aspirin 81 mg daily. SOCIAL HISTORY: The patient denies tobacco use, alcohol use or recreational drug use. FAMILY HISTORY: Multiple family members with heart disease. CODE STATUS: I discussed his code status. He is FULL CODE. His is the surrogate decision make r. PHYSICAL EXAMINATION: GENERAL: On examination, Mr. Phillips is awake and alert, not in acute distress. VITAL SIGNS: Blood pressure is 155/67, pulse is 77, he is breathing at rate of 16, and saturating 94 % on room air. He is afebrile. EYES: No scleral icterus. No conjunctival pallor. Bilateral pterygium present. ENT: Moist mucosal membranes, no oropharyngeal erythema or exudates. NECK: Supple, nontender, normal range of movement. Trachea is midline. RESPIRATORY: Accessory muscles of breathing are not active. Chest wall movements are symmetric bila terally. Lungs are clear to auscultation without wheeze, rhonchi or crepitations. CARDIOVASCULAR: S1 and S2 are heard, regular. Peripheral pulses palpable. No carotid bruit, no per icardial rub. ABDOMEN: Soft, nontender, bowel sounds are heard, no hepatomegaly, no splenomegaly. NEUROLOGIC: Cranial nerves II-XII intact. Deep tendon reflexes are 2+. MUSCULOSKELETAL: Power is 5/5 in all 4 extremities. LYMPHATIC: No cervical lymphadenopathy. SKIN: No rashes or subcutaneous nodules. PSYCHIATRIC: Normal mood, normal affect. The patient is oriented to person, place and time. LABORATORY DATA AND IMAGING: Mr. Phillips's labs and investigations were reviewed. I reviewed his electr ocardiograms. Electrocardiogram done at 2028 hours on 02/26/2018 showed inferior Q-waves as well as ST segment changes in the lateral leads. He was in sinus rhythm. Repeat electrocardiogram done at 2 327 hours on 02/26/2018 showed lateral T-wave flattening/inversion and isolated ST segment elevation in lead 3, but not in 2 contiguous leads. I also reviewed his chest x-ray, which does not show any pulmonary infiltrates. He has elevated trop onin I of 0.632, trending up from 0.551. He has leukocytosis with 12,300 white cells, of which 73.9% are neutrophils, microcytic anemia with hemoglobin 9.3, last known hemoglobin 11.9 on 01/04/2018, no rmal platelet count, normal potassium, decreased sodium of 129, elevated creatinine of 1.80, last kno wn creatinine 1.46 on 01/04/2018, elevated blood urea nitrogen of 30, elevated glucose of 585, normal anion gap, normal carbon dioxide and elevated BNP level of 272.5. ASSESSMENT AND PLAN: Mr. Phillips is a pleasant 72-year-old gentleman who was seen at [facility] on 02/27/2018. His problem list includes: 1. Palpitations: He is presenting with palpitations. He reports that it started 2 days ago. His A ICD was interrogated and the emergency room physician reports that arrhythmias were not found. It is unclear as to what is causing his symptoms. He will be admitted to the hospital for further managem ent. He will be monitored on telemetry. Cardiology Service will be consulted. 2. Elevated troponins. Likely secondary to demand ischemia from probable tachyarrhythmia. I had a lengthy discussion with Mr. Phillips. Given his history of recurrent GI bleeds, which he reports happened as recently as 6 months ago, the risk of starting him on anticoagulation benefit, especially s aleksandr the source of elevated troponin is unclear. He made an informed decision not to have anticoagul ation following the discussion. We will trend his troponins. If there is clear evidence of an acute coronary syndrome, we will initiate anticoagulation. 3. Diabetes mellitus: Continue home medications, start Accu-Cheks and insulin sliding scale. 4. Hypertension: Monitor vital signs, titrate antihypertensives as needed. 5. Acute on chronic renal failure: Recheck creatinine. Provide gentle hydration, patient also has history of congestive heart failure, watch for volume overload. 6. Hypothyroidism: Check TSH level. 7. Hyponatremia: Mild, likely asymptomatic. We will recheck sodium level. Many thanks for allowing me to participate in your patient's care. Please feel free to contact me wi th any questions or concerns. LEVEL OF RISK: High. LEVEL OF COMPLEXITY: High.
[2018-02-27] MEDS: Sodium Chloride 0.9% 1,000 ML IV SCH ×2 (03:28→20:26)
[2018-02-27] MEDS ORDERED: HYDROcodone/Acetaminophen 10/325 mg Tablet PO SCH (03:30)
[2018-02-27 05:07] LABS: #Eosinphils 0.1 thou/uL (0.0-0.7); #Neutrophils 7.6 thou/uL (1.40-6.50); %Basophils 0.2 % (0.0-1.0); %Eosinophils 1.3 % (0.0-10.0); %Lymphocytes 18.3 % (21.0-51.0); %Monocytes 9.1 % (0.0-10.0); %Neutrophils 71.1 % (42.0-75.0); Hemoglobin 9.2 g/dL (14.0-18.0); Mean Corpuscular HGB CONC 32.2 g/dL (32.0-36.0); Mean Corpuscular Hemoglobin 24.1 pg (27.0-31.0); Mean Corpuscular Volume 74.9 fl (80.0-94.0); Mean Platelet Volume 9.1 fL (7.4-10.4); Platelet Count 186 thou/uL (130-400); RBC Distribution Width 17.2 % (11.5-14.5); Red Blood Cell (RBC) Count 3.81 mill/uL (4.70-6.10); White Blood Cell (WBC) Count 10.7 thou/uL (4.8-10.8)
[2018-02-27 05:13] LABS: Anion Gap 12 mmol/L (10-20); BUN (Urea Nitrogen) 25 mg/dL (8.4-25.7); Calc. Creatinine Clearance 60 mL/min (70-130); Calcium 8.9 mg/dL (7.8-10.44); Carbon Dioxide 27 mmol/L (23-31); Chloride 98 mmol/L (98-107); Estimated GFR-MDRD 52; Glucose 352 mg/dL (83-110); Potassium 4.6 mmol/L (3.5-5.1); Sodium 132 mmol/L (136-145)
[2018-02-27 05:20] LABS: CKMB 2.5 ng/mL (0-6.6)
[2018-02-27 05:21] LABS: Critical Call Chem Troponin I RESULT DECREASING; Troponin I 0.547 ng/mL (< 0.028)
[2018-02-27 05:24] LABS: CKMB 2.4 ng/mL (0-6.6)
[2018-02-27 05:26] LABS: Critical Call Chem Troponin I RESULT DECREASING; Troponin I 0.516 ng/mL (< 0.028)
[2018-02-27] MEDS: HumaLOG 300 UNITS/3 ML VIAL SC PRN ×3 (06:12→17:29)
[2018-02-27 08:44] LABS: Troponin I 0.543 ng/mL (< 0.028)
[2018-02-27] MEDS ORDERED: Enoxaparin Sodium 100 MG/ML SYRINGE SC SCH (09:00)
--- NOTE | 2018-02-27 10:56 | PDOC.PN ---
- Subjective Encounter Start Date: 02/27/18 Encounter Start Time: 09:55 Subjective: no c/o sob, chest pain or palpitations -: is npo - Objective MAR Reviewed: Yes Vital Signs & Weight: Vital Signs (12 hours) Temp Pulse Resp BP Pulse Ox 02/27/18 08:00 98.3 F 87 16 02/27/18 07:40 98.3 F 87 16 110/61 98 02/27/18 04:00 98.3 F 77 18 118/57 L 97 I&O: 02/26/18 02/27/18 02/28/18 06:59 06:59 06:59 Intake Total 233 Output Total 275 425 Balance -42 -425 Result Diagrams: 02/27/18 04:52 02/27/18 04:52 Additional Labs: Accuchecks 02/27/18 05:32 POC Glucose 314 H Phys Exam - Physical Examination HEENT: PERRLA, moist MMs Neck: no JVD, supple Respiratory: no wheezing, no rales Cardiovascular: RRR, no significant murmur Gastrointestinal: soft, non-tender, positive bowel sounds Musculoskeletal: no edema, pulses present Neurological: non-focal, moves all 4 limbs Psychiatric: normal affect, A&O x 3 Dx/Plan (1) NSTEMI (non-ST elevated myocardial infarction) Code(s): I21.4 - NON-ST ELEVATION (NSTEMI) MYOCARDIAL INFARCTION Status: Acute (2) CAD (coronary artery disease) Code(s): I25.10 - ATHSCL HEART DISEASE OF [place] CORONARY ARTERY W/O ANG PCTRS Status: Chronic Qualifiers: Coronary Disease-Associated Artery/Lesion type: bypass graft [place] vs. transplanted heart: [place] heart Associated angina: without angina Qualified Code(s): I25.810 - Atherosclerosis of coronary artery bypass graft(s) without angina pectoris Comment: cabg done in [facility] 2012 (3) History of pulmonary embolism Code(s): Z86.711 - PERSONAL HISTORY OF PULMONARY EMBOLISM Status: Chronic Comment: h/o ivc filter (4) Parkinson disease Code(s): G20 - PARKINSON'S DISEASE Status: Chronic (5) Dyslipidemia Code(s): E78.5 - HYPERLIPIDEMIA, UNSPECIFIED Status: Chronic (6) Anemia Code(s): D64.9 - ANEMIA, UNSPECIFIED Status: Chronic Qualifiers: Anemia type: unspecified type Qualified Code(s): D64.9 - Anemia, unspecified (7) CHF (congestive heart failure), NYHA class III Code(s): I50.9 - HEART FAILURE, UNSPECIFIED Status: Chronic Qualifiers: Congestive heart failure type: combined Comment: ef of 25%, aicd placed in 12/2017 (8) CKD (chronic kidney disease) stage 3, GFR 30-59 ml/min Code(s): N18.3 - CHRONIC KIDNEY DISEASE, STAGE 3 (MODERATE) Status: Chronic (9) COPD (chronic obstructive pulmonary disease) Status: Chronic Qualifiers: COPD type: unspecified COPD Qualified Code(s): J44.9 - Chronic obstructive pulmonary disease, unspecified Comment: on home oxygen prn (does not use it continuosly) (10) Type 2 diabetes mellitus Status: Chronic Qualifiers: Diabetes mellitus rn long term care insulin use: without jail use Diabetes mellitus complication status: with hyperglycemia Qualified Code(s): E11.65 - Type 2 diabetes mellitus with hyperglycemia - Plan indet trop peaking upto 0.6, ckmb is 2.5 -: pt is npo, cardio consultation, may feed if ok with cardio -: possible flutter/fib -: on asp, lipitor, coreg, imdur and lisinopril -: nebs prn, spiriva inhaler, to amb as tolerated * . Review of Systems - Medications/Allergies Allergies/Adverse Reactions: Allergies Allergy/AdvReac Type Severity Reaction Status Date / Time cyclobenzaprine HCl Allergy Verified 02/27/18 03:49 [From Flexeril] iodine Allergy Hives Verified 02/27/18 03:49 latex Allergy Rash Verified 02/27/18 03:49 Medications: Current Medications Acetaminophen (Tylenol) 650 mg PO Q4H PRN PRN Reason: Headache/Fever or Pain Hydrocodone Bitart/Acetaminophen ([place] 10/325) 1 tab PO QID PRN PRN Reason: Pain Albuterol/Ipratropium (Duoneb) 3 ml NEB QIDPRN PRN PRN Reason: sob/wheezing Aspirin (Ecotrin) 325 mg PO DAILY [facility] Atorvastatin Calcium (Lipitor) 40 mg PO DAILY [facility] Bisacodyl (Dulcolax) 10 mg PO DAILYPRN PRN PRN Reason: Constipation Carbidopa/Levodopa (Sinemet Cr 50/200) 0.5 tab PO DAILY [facility] Carvedilol (Coreg) 6.25 mg PO BID [facility] Dextrose/Water (Dextrose 50%) 25 gm SLOW IVP PRN PRN PRN Reason: Hypoglycemia Glucagon (Glucagon) 1 mg IM PRN PRN PRN Reason: Hypoglycemia Dextrose/Water (D5w) 1,000 mls @ 0 mls/hr IV .Q0M PRN; As Directed PRN Reason: Hypoglycemia Sodium Chloride (Normal Saline 0.9%) 1,000 mls @ 50 mls/hr IV .Q20H [facility] Last Admin: 02/27/18 03:28 Dose: 1,000 mls Insulin Human Lispro (Humalog) 0 units SC .MILD SLIDING SCALE PRN PRN Reason: Mild Correctional Scale Last Admin: 02/27/18 06:12 Dose: 5 unit Ipratropium [place] (Atrovent) 2.5 ml NEB [id number] [facility] Isosorbide Mononitrate (Imdur) 60 mg PO DAILY [facility] Lisinopril (Zestril) 5 mg PO DAILY [facility] Ondansetron HCl (Zofran) 4 mg IVP Q6H PRN PRN Reason: Nausea/Vomiting Stop: 02/27/18 12:54 Ondansetron HCl (Zofran Odt) 4 mg SL Q6H PRN PRN Reason: Nausea/Vomiting Stop: 02/27/18 12:54 Last Admin: 02/27/18 03:27 Dose: 4 mg Pantoprazole Sodium (Protonix) 40 mg PO DAILY [facility] Sertraline HCl (Zoloft) 100 mg PO DAILY [facility] Sodium Chloride (Flush - Normal Saline) 10 ml IVF Q12HR [facility] Last Admin: 02/27/18 10:14 Dose: Not Given Sodium Chloride (Flush - Normal Saline) 10 ml IVF PRN PRN PRN Reason: Saline Flush
[2018-02-27] MEDS: Ipratropium Bromide 2.5 ml Neb NEB SCH ×3 (13:26→23:29)
--- NOTE | 2018-02-27 15:11 | CON ---
DATE OF CONSULTATION: 02/27/2018 REASON FOR CONSULTATION: Elevated troponins. HISTORY OF PRESENT ILLNESS: Mr. Phillips is a pleasant 72-year-old white gentleman, who comes to the hosp ital for an episode of presyncope. He was at home and his animals and he had a presyncopal episode; he was close to passing out. He had to sit down and then everything went away. He did not really pa ss out. He just had to stop and sit down. It lasted for a few minutes and then it got better. He d ecided to come in secondary to this. He tells me he had a sensation of his heart fluttering at that time; this lasted about 20-30 minutes. He did feel some nausea and vomited multiple times and was a little lightheaded at that time. PAST MEDICAL HISTORY: 1. History of multiple GI bleedings in the past, requiring chronic IV iron infusions, the last one w as about 2 months ago. 2. Coronary artery disease, status post single-vessel bypass. Stents before that. 3. Bilateral renal masses, excised in the past. 4. Pulmonary embolism, status post IVC filter in 2011. 5. Chronic systolic heart failure. 6. Presence of an AICD placed about 2 months ago. 7. Hypertension. 8. Type 2 diabetes. 9. COPD. 10. Home oxygen. PAST SURGICAL HISTORY: 1. Multiple EGDs and colonoscopies. 2. IVC filter for deep venous thrombosis and pulmonary embolism. 3. Multiple cardiac catheterizations and stent placement. 4. Coronary artery bypass grafting x1 in 2010. 5. Excision of renal masses. OUTPATIENT MEDICATIONS: 1. Carbidopa/levodopa. 2. Atorvastatin 40 mg a day. 3. Sertraline. 4. Protonix 40 mg a day. 5. Imdur 60 mg a day. 6. Coreg 6.25 mg b.i.d. 7. [place] p.r.n. 8. Lisinopril 10 mg a day. 9. Lasix 20 mg a day. 10. Humalog sliding scale. 11. Aspirin 81 a day. SOCIAL HISTORY: No alcohol, tobacco, or drugs. FAMILY HISTORY: Noncontributory. ALLERGIES: FLEXERIL, PLAVIX, IODINE, and LATEX. REVIEW OF SYSTEMS: A 12-point review of systems was done and is all negative unless stated in the hi story of present illness. LABORATORY WORK: White count of 10.7, hemoglobin of 9.2, hematocrit of 28, platelet count of 186. C hemistry, sodium 132, creatinine 1.35, GFR 52, glucose was high at 352, calcium of 8.9, troponin was 0.63, 0.54, 0.51, and 0.54. EKG was reviewed. ASSESSMENT AND PLAN: 1. Presyncope: Implantable cardioverter defibrillator interrogation shows no evidence of any tachya rrhythmia or bradyarrhythmias. Most likely, this must have been either a hypoglycemic episode versus a hypotensive episode. At this time, his troponin elevation is most likely related to demand ischem ia. He is not having any symptoms concerning for an acute coronary syndrome. 2. Epigastric pain: Towards the end of my interview, he tells me that he has been having indigestio n for the last 6 months. He states that he has been placed on twice a day PPI secondary to his indig estion and this does not really do much for him. He states that yesterday when he came in they gave him nitro and the nitro actually made his epigastric pain get better suggesting this is likely angina not reflux pain. We will plan on starting antianginal therapy to see if we were able to make his ep igastric pain feel better. He is already taking Imdur 60 mg a day. I will start Ranexa at 500 mg tw ice a day to see if he feels any improvement in his epigastric pain. 3. Coronary artery disease, status post single-vessel bypass. 4. History of gastrointestinal bleeding: We spoke about possibly doing a heart catheterization. Kali alvarez, he is not interested at this time given the possibility of him needing a stent and requiring a nticoagulation or antiplatelet therapy for at least 1 month if he were to need it. This would mean t hat he may start bleeding again. At this time, we will treat medically. Thank you for letting me to participate in care of the patient. We will follow.
[2018-02-27] MEDS ORDERED: Insulin Glargine 30 UNITS in Pre-Filled Syringe 1 EACH SC SCH (17:30)
[2018-02-27] MEDS: HYDROcodone/Acetaminophen 10/325 mg Tablet PO PRN (20:24)
[2018-02-27] MEDS: Carvedilol 6.25 MG TAB PO SCH (20:25)
[2018-02-28] MEDS ORDERED: Diltiazem HCl 125 MG, Admixture Fee 1 EACH in Sodium Chloride 0.9% 100 ML IVPB SCH ×2 (06:00→07:00)
[2018-02-28] MEDS: Ipratropium Bromide 2.5 ml Neb NEB SCH ×3 (06:46→20:53)
[2018-02-28] MEDS: Aspirin 325 mg Enteric Coated Tablet PO SCH (08:46)
[2018-02-28] MEDS: Carbidopa/Levodopa CR 50-200 mg Tablet PO SCH (08:46)
[2018-02-28] MEDS: Atorvastatin Calcium 40 MG TAB PO SCH (08:46)
[2018-02-28] MEDS: Carvedilol 6.25 MG TAB PO SCH (08:47)
[2018-02-28] MEDS: Lisinopril 5 MG TAB PO SCH (08:47)
[2018-02-28] MEDS: HumaLOG 300 UNITS/3 ML VIAL SC PRN ×3 (08:52→20:44)
[2018-02-28] MEDS ORDERED: Insulin Glargine 20 UNITS in Pre-Filled Syringe 1 EACH SC SCH (09:00)
[2018-02-28] MEDS: Insulin Glargine 30 UNITS in Pre-Filled Syringe 1 EACH SC SCH ×2 (10:44→20:42)
--- NOTE | 2018-02-28 11:12 | PDOC.PN ---
- Subjective Encounter Start Date: 02/28/18 Encounter Start Time: 08:00 Subjective: no sob or palp now, is sitting on bed -: says he was diaphoretic last night, no chest pain but had palp then - Objective MAR Reviewed: Yes Vital Signs & Weight: Vital Signs (12 hours) Temp Pulse Resp BP BP Pulse Ox 02/28/18 07:30 97.6 F 75 15 127/58 L 97 02/28/18 06:44 70 14 02/28/18 05:48 128/77 02/28/18 04:00 98.4 F 87 18 123/69 97 02/27/18 23:29 95 Weight Weight 191 lb I&O: 02/27/18 02/28/18 03/01/18 06:59 06:59 06:59 Intake Total 233 1440 Output Total 275 1075 Balance -42 365 Result Diagrams: 02/27/18 04:52 02/27/18 04:52 Additional Labs: Accuchecks 02/28/18 02/27/18 02/27/18 06:07 21:10 16:44 POC Glucose 335 H 381 H 433 H 02/27/18 11:12 POC Glucose 268 H Phys Exam - Physical Examination HEENT: PERRLA, moist MMs Neck: no JVD, supple Respiratory: no wheezing, no rales Cardiovascular: RRR, no significant murmur Gastrointestinal: soft, non-tender, positive bowel sounds Musculoskeletal: no edema, pulses present Neurological: non-focal, moves all 4 limbs Psychiatric: normal affect, A&O x 3 Dx/Plan (1) NSTEMI (non-ST elevated myocardial infarction) Code(s): I21.4 - NON-ST ELEVATION (NSTEMI) MYOCARDIAL INFARCTION Status: Acute (2) CAD (coronary artery disease) Code(s): I25.10 - ATHSCL HEART DISEASE OF [place] CORONARY ARTERY W/O ANG PCTRS Status: Chronic Qualifiers: Coronary Disease-Associated Artery/Lesion type: bypass graft [place] vs. transplanted heart: [place] heart Associated angina: without angina Qualified Code(s): I25.810 - Atherosclerosis of coronary artery bypass graft(s) without angina pectoris Comment: cabg done in [facility] 2012 (3) History of pulmonary embolism Code(s): Z86.711 - PERSONAL HISTORY OF PULMONARY EMBOLISM Status: Chronic Comment: h/o ivc filter (4) Parkinson disease Code(s): G20 - PARKINSON'S DISEASE Status: Chronic (5) Dyslipidemia Code(s): E78.5 - HYPERLIPIDEMIA, UNSPECIFIED Status: Chronic (6) Anemia Code(s): D64.9 - ANEMIA, UNSPECIFIED Status: Chronic Qualifiers: Anemia type: unspecified type Qualified Code(s): D64.9 - Anemia, unspecified (7) CHF (congestive heart failure), NYHA class III Code(s): I50.9 - HEART FAILURE, UNSPECIFIED Status: Chronic Qualifiers: Congestive heart failure type: combined Comment: ef of 25%, aicd placed in 12/2017 (8) CKD (chronic kidney disease) stage 3, GFR 30-59 ml/min Code(s): N18.3 - CHRONIC KIDNEY DISEASE, STAGE 3 (MODERATE) Status: Chronic (9) COPD (chronic obstructive pulmonary disease) Status: Chronic Qualifiers: COPD type: unspecified COPD Qualified Code(s): J44.9 - Chronic obstructive pulmonary disease, unspecified Comment: on home oxygen prn (does not use it continuosly) (10) Type 2 diabetes mellitus Status: Chronic Qualifiers: Diabetes mellitus terminal gauger supervisor insulin use: without terminal gauger supervisor use Diabetes mellitus complication status: with hyperglycemia Qualified Code(s): E11.65 - Type 2 diabetes mellitus with hyperglycemia - Plan increase lantus to 30u bid -: no cath per cardio as d/w patient -: is on cardizem drip at 5mg/hr -: asp, coreg, lipitor, lisinopril, imdur and ranexa -: hemostable, ?dc plan in am if he is off cardizem drip * . Review of Systems - Medications/Allergies Allergies/Adverse Reactions: Allergies Allergy/AdvReac Type Severity Reaction Status Date / Time cyclobenzaprine HCl Allergy Verified 02/27/18 03:49 [From Flexeril] iodine Allergy Hives Verified 02/27/18 03:49 latex Allergy Rash Verified 02/27/18 03:49 Medications: Current Medications Acetaminophen (Tylenol) 650 mg PO Q4H PRN PRN Reason: Headache/Fever or Pain Last Admin: 02/27/18 17:36 Dose: 650 mg Hydrocodone Bitart/Acetaminophen ([place] 10/325) 1 tab PO QID PRN PRN Reason: Pain Last Admin: 02/27/18 20:24 Dose: 1 tab Albuterol/Ipratropium (Duoneb) 3 ml NEB QIDPRN PRN PRN Reason: sob/wheezing Last Admin: 02/28/18 06:44 Dose: 3 ml Aspirin (Ecotrin) 325 mg PO DAILY [facility] Last Admin: 02/28/18 08:46 Dose: 325 mg Atorvastatin Calcium (Lipitor) 40 mg PO DAILY [facility] Last Admin: 02/28/18 08:46 Dose: 40 mg Bisacodyl (Dulcolax) 10 mg PO DAILYPRN PRN PRN Reason: Constipation Carbidopa/Levodopa (Sinemet Cr 50/200) 0.5 tab PO DAILY [facility] Last Admin: 02/28/18 08:46 Dose: 0.5 tab Carvedilol (Coreg) 6.25 mg PO BID [facility] Last Admin: 02/28/18 08:47 Dose: 6.25 mg Dextrose/Water (Dextrose 50%) 25 gm SLOW IVP PRN PRN PRN Reason: Hypoglycemia Glucagon (Glucagon) 1 mg IM PRN PRN PRN Reason: Hypoglycemia Dextrose/Water (D5w) 1,000 mls @ 0 mls/hr IV .Q0M PRN; As Directed PRN Reason: Hypoglycemia Sodium Chloride (Normal Saline 0.9%) 1,000 mls @ 50 mls/hr IV .Q20H [facility] Last Admin: 02/27/18 20:26 Dose: 1,000 mls Diltiazem HCl 125 mg/Miscellaneous Medication 1 each/ Sodium Chloride 125 mls @ 5 mls/hr IVPB INF [facility] PRN Reason: Protocol Insulin Glargine 30 units/ (Miscellaneous Medication) 0.3 mls @ 0 mls/hr SC BID [facility] Last Admin: 02/28/18 10:44 Dose: 0.3 mls Insulin Human Lispro (Humalog) 0 units SC .MILD SLIDING SCALE PRN PRN Reason: Mild Correctional Scale Last Admin: 02/28/18 08:52 Dose: 5 unit Ipratropium [place] (Atrovent) 2.5 ml NEB [id number] [facility] Last Admin: 02/28/18 06:46 Dose: Not Given Isosorbide Mononitrate (Imdur) 60 mg PO DAILY [facility] Last Admin: 02/28/18 08:47 Dose: 60 mg Lisinopril (Zestril) 5 mg PO DAILY [facility] Last Admin: 02/28/18 08:47 Dose: 5 mg Pantoprazole Sodium (Protonix) 40 mg PO DAILY [facility] Last Admin: 02/28/18 08:48 Dose: 40 mg Ranolazine (Ranexa) 500 mg PO BID [facility] Last Admin: 02/28/18 08:48 Dose: 500 mg Sertraline HCl (Zoloft) 100 mg PO DAILY [facility] Last Admin: 02/28/18 08:48 Dose: 100 mg Sodium Chloride (Flush - Normal Saline) 10 ml IVF Q12HR [facility] Last Admin: 02/28/18 08:48 Dose: Not Given Sodium Chloride (Flush - Normal Saline) 10 ml IVF PRN PRN PRN Reason: Saline Flush
--- NOTE | 2018-02-28 11:54 | PQF ---
CLINICAL DOCUMENTATION IMPROVEMENT CLARIFICATION FORM: ICD-10 Updated PLEASE DO AN ADDENDUM TO THE PROGRESS NOTE WITH ANY DOCUMENTATION UPDATES OR ADDITIONS AND CARRY THROUGH TO DC SUMMARY. THANK YOU. DATE: 02/28/18 ATTN: DR. BARCLAY Please exercise your independent, professional judgment in responding to the clarification form. Clinical indicators are provided on the bottom of this form for your review Please check appropriate box(s): AMI TYPE: [ ] NSTEMI [ x ] IN TYPE 2 [ x] DEMAND ISCHEMIA [ ] Unable to determine In addition, please specify: Present on Admission (POA): [ x] Yes [ ] No [ ] Unable to determine CLINICAL INDICATORS - SIGNS / SYMPTOMS / LABS H&P 02/27: "ELEVATED TROPONINS. LIKELY SECONDARY TO DEMAND ISCHEMIA FROM PROBABLE TACHYARRYTHMIA." PROGRESS NOTE 02/27: "NSTEMI" CONSULTATION NOTE 02/27: "AT THIS TIME, HIS TROPONIN ELEVATION IS MOST LIKELY RELATED TO DEMAND ISCHEMIA." TROPONINS 0.632 / 0.547 / 0.516 RISKS: H/O HYPERTENSION H/O RENAL FAILURE H/O CAD TREATMENT: SERIAL LABS CARDIOLOGY CONSULT TELEMETRY MONITORING ECOTRIN LOVENOX GIVEN IN ER SAP Cat [employer] Winform Viewer (This form is maintained as a part of the permanent medical record) 2014 [employer]. All Rights Reserved TROY [email or web address] Office: [phone] [facility]ALTH[facility]urt[facility]
[2018-02-28] MEDS ORDERED: Carvedilol 6.25 MG TAB PO SCH ×2 (14:59→21:00)
--- NOTE | 2018-02-28 16:04 | PDOC.CTH ---
Cardiology Progress Note - Subjective He is doing better. He had an episode last night were he felt the same way he felt at home, presyncopal and it was noted his HR went from 70's to the 130's 140's, he was started on diltiazem drip. - Objective Vital Signs Temp Pulse Resp BP BP Pulse Ox 02/28/18 13:53 69 14 02/28/18 12:44 98 F 66 18 95/52 L 94 L 02/28/18 07:30 97.6 F 75 15 127/58 L 97 02/28/18 06:44 70 14 02/28/18 05:48 128/77 Weight 191 lb 02/27/18 02/28/18 03/01/18 06:59 06:59 06:59 Intake Total 233 1440 Output Total 275 1075 Balance -42 365 - Physical Examination General/Neuro: alert & oriented x3, NAD Neck: no JVD present Lungs: CTA, unlabored respirations Heart: RRR Abdomen: NT/ND Extremities: other: (no edema) - Telemetry Telemetry Rhythm: NSR - Labs Result Diagrams: 02/27/18 04:52 02/27/18 04:52 Troponin/CKMB CK-MB (CK-2) 2.4 ng/mL (0-6.6) 02/27/18 04:52 Troponin I 0.543 ng/mL (< 0.028) H* 02/27/18 08:04 - Assessment/Plan 1. Presyncope 2. Possible SVT, seems like sinus tach. 3. DilateD CM 4. S/P AICD 5. S/P Single vessel CABG in 2010 6. S/P IVC filter for DVT\PE 7. Hx of GI Bleeding requiring multiple IV iron infusions. PLAN: - Will ask EP to weigh in on this possible SVT. I favor sinus tach. - Will re interrogate AICD to see it caught anything from last night. - Stop diltiazem. - Decrease coreg to 3.125 mg BID due to hypotension and hold for now until BP better. - Continue tele monitoring.
[2018-02-28] MEDS: Sodium Chloride 0.9% 1,000 ML IV SCH (16:54)
[2018-02-28] MEDS ORDERED: Insulin NPH/Reg Insulin Hm 300 UNITS/3 ML VIAL SC SCH (18:00)
[2018-02-28] MEDS: Carvedilol 3.125 MG TAB PO SCH (20:42)
[2018-02-28] MEDS: HYDROcodone/Acetaminophen 10/325 mg Tablet PO PRN (22:26)
[2018-03-01] MEDS: Ipratropium Bromide 2.5 ml Neb NEB SCH ×3 (00:26→12:06)
[2018-03-01] MEDS: Carbidopa/Levodopa CR 50-200 mg Tablet PO SCH (08:38)
[2018-03-01] MEDS: Aspirin 325 mg Enteric Coated Tablet PO SCH (08:38)
[2018-03-01] MEDS: Atorvastatin Calcium 40 MG TAB PO SCH (08:38)
[2018-03-01] MEDS: Lisinopril 5 MG TAB PO SCH (08:39)
[2018-03-01] MEDS: Carvedilol 3.125 MG TAB PO SCH (08:39)
[2018-03-01] MEDS: Insulin Glargine 30 UNITS in Pre-Filled Syringe 1 EACH SC SCH (08:41)
[2018-03-01 08:48] LABS: Anion Gap 12 mmol/L (10-20); BUN (Urea Nitrogen) 20 mg/dL (8.4-25.7); Calc. Creatinine Clearance 70 mL/min (70-130); Calcium 9.5 mg/dL (7.8-10.44); Carbon Dioxide 26 mmol/L (23-31); Chloride 102 mmol/L (98-107); Estimated GFR-MDRD 62; Glucose 289 mg/dL (83-110); Potassium 4.8 mmol/L (3.5-5.1); Sodium 135 mmol/L (136-145)
[2018-03-01 08:49] LABS: #Eosinphils 0.4 thou/uL (0.0-0.7); #Monocytes 0.7 thou/uL (0.11-0.59); %Basophils 0.4 % (0.0-1.0); %Eosinophils 3.5 % (0.0-10.0); %Lymphocytes 19.6 % (21.0-51.0); %Monocytes 6.7 % (0.0-10.0); %Neutrophils 69.7 % (42.0-75.0); Hemoglobin 9.9 g/dL (14.0-18.0); Mean Corpuscular HGB CONC 31.3 g/dL (32.0-36.0); Mean Corpuscular Hemoglobin 24.2 pg (27.0-31.0); Mean Corpuscular Volume 77.1 fl (80.0-94.0); Mean Platelet Volume 9.1 fL (7.4-10.4); Platelet Count 225 thou/uL (130-400); RBC Distribution Width 17.3 % (11.5-14.5); Red Blood Cell (RBC) Count 4.08 mill/uL (4.70-6.10)
[2018-03-01] MEDS: HumaLOG 300 UNITS/3 ML VIAL SC PRN (08:56)
[2018-03-01 10:59] LABS: Anisocytosis SLIGHT = 6-15 cells (100X) (0-5/hpf); MDiff Complete? YES; PLT Morphology Comment Appears Adequate; Polychromasia SLIGHT = 2-3 cells (100X) (0-2/hpf)
[2018-03-01] MEDS: Sodium Chloride 0.9% 1,000 ML IV SCH (12:32)
--- NOTE | 2018-03-01 12:50 | PDOC.PN ---
- Subjective Encounter Start Date: 03/01/18 Encounter Start Time: 08:00 Subjective: no chest pain or palp -: feels better - Objective MAR Reviewed: Yes Vital Signs & Weight: Vital Signs (12 hours) Temp Pulse Resp BP BP Pulse Ox 03/01/18 12:06 70 14 03/01/18 08:39 87 03/01/18 08:00 97.6 F 87 20 108/65 91 L 03/01/18 06:19 70 14 03/01/18 03:21 98.5 F 73 16 100/55 L 96 Weight Weight 193 lb 3.2 oz I&O: 02/28/18 03/01/18 03/02/18 06:59 06:59 06:59 Intake Total 1440 2205 240 Output Total 1075 1425 300 Balance 365 780 -60 Result Diagrams: 03/01/18 08:06 03/01/18 08:06 Additional Labs: Accuchecks 03/01/18 03/01/18 02/28/18 11:42 05:37 20:43 POC Glucose 249 H 334 H 415 H 02/28/18 16:41 POC Glucose 417 H Phys Exam - Physical Examination HEENT: PERRLA, moist MMs Neck: no JVD, supple Respiratory: no wheezing, no rales Cardiovascular: RRR, no significant murmur Gastrointestinal: soft, non-tender, positive bowel sounds Musculoskeletal: no edema, pulses present Neurological: non-focal, moves all 4 limbs Psychiatric: normal affect, A&O x 3 Dx/Plan (1) NSTEMI (non-ST elevated myocardial infarction) Code(s): I21.4 - NON-ST ELEVATION (NSTEMI) MYOCARDIAL INFARCTION Status: Resolved Comment: likely demand ischemia from svt (2) CAD (coronary artery disease) Code(s): I25.10 - ATHSCL HEART DISEASE OF [place] CORONARY ARTERY W/O ANG PCTRS Status: Chronic Qualifiers: Coronary Disease-Associated Artery/Lesion type: bypass graft [place] vs. transplanted heart: [place] heart Associated angina: without angina Qualified Code(s): I25.810 - Atherosclerosis of coronary artery bypass graft(s) without angina pectoris Comment: cabg done in [facility] 2012 (3) History of pulmonary embolism Code(s): Z86.711 - PERSONAL HISTORY OF PULMONARY EMBOLISM Status: Chronic Comment: h/o ivc filter (4) Parkinson disease Code(s): G20 - PARKINSON'S DISEASE Status: Chronic (5) Dyslipidemia Code(s): E78.5 - HYPERLIPIDEMIA, UNSPECIFIED Status: Chronic (6) Anemia Code(s): D64.9 - ANEMIA, UNSPECIFIED Status: Chronic Qualifiers: Anemia type: unspecified type Qualified Code(s): D64.9 - Anemia, unspecified (7) CHF (congestive heart failure), NYHA class III Code(s): I50.9 - HEART FAILURE, UNSPECIFIED Status: Chronic Qualifiers: Congestive heart failure type: combined Comment: ef of 25%, aicd placed in 12/2017 (8) CKD (chronic kidney disease) stage 3, GFR 30-59 ml/min Code(s): N18.3 - CHRONIC KIDNEY DISEASE, STAGE 3 (MODERATE) Status: Chronic (9) COPD (chronic obstructive pulmonary disease) Status: Chronic Qualifiers: COPD type: unspecified COPD Qualified Code(s): J44.9 - Chronic obstructive pulmonary disease, unspecified Comment: on home oxygen prn (does not use it continuosly) (10) Type 2 diabetes mellitus Status: Chronic Qualifiers: Diabetes mellitus chcf insulin use: without recycling operator use Diabetes mellitus complication status: with hyperglycemia Qualified Code(s): E11.65 - Type 2 diabetes mellitus with hyperglycemia - Plan dm is uncontrolled still -: is on lantus 30u bid, will add 70/30 later if needed -: dc plan per cardio advice -: is getting AICD interrogation today plus EP input -: to ambulate as tolerated, cardiac meds are being optimized * . Review of Systems - Medications/Allergies Allergies/Adverse Reactions: Allergies Allergy/AdvReac Type Severity Reaction Status Date / Time cyclobenzaprine HCl Allergy Verified 02/27/18 03:49 [From Flexeril] iodine Allergy Hives Verified 02/27/18 03:49 latex Allergy Rash Verified 02/27/18 03:49 Medications: Current Medications Acetaminophen (Tylenol) 650 mg PO Q4H PRN PRN Reason: Headache/Fever or Pain Last Admin: 02/27/18 17:36 Dose: 650 mg Hydrocodone Bitart/Acetaminophen ([place] 10/325) 1 tab PO QID PRN PRN Reason: Pain Last Admin: 02/28/18 22:26 Dose: 1 tab Albuterol/Ipratropium (Duoneb) 3 ml NEB QIDPRN PRN PRN Reason: sob/wheezing Last Admin: 02/28/18 06:44 Dose: 3 ml Aspirin (Ecotrin) 325 mg PO DAILY [facility] Last Admin: 03/01/18 08:38 Dose: 325 mg Atorvastatin Calcium (Lipitor) 40 mg PO DAILY [facility] Last Admin: 03/01/18 08:38 Dose: 40 mg Bisacodyl (Dulcolax) 10 mg PO DAILYPRN PRN PRN Reason: Constipation Carbidopa/Levodopa (Sinemet Cr 50/200) 0.5 tab PO DAILY [facility] Last Admin: 03/01/18 08:38 Dose: 0.5 tab Carvedilol (Coreg) 3.125 mg PO BID [facility] Last Admin: 03/01/18 08:39 Dose: 3.125 mg Dextrose/Water (Dextrose 50%) 25 gm SLOW IVP PRN PRN PRN Reason: Hypoglycemia Glucagon (Glucagon) 1 mg IM PRN PRN PRN Reason: Hypoglycemia Dextrose/Water (D5w) 1,000 mls @ 0 mls/hr IV .Q0M PRN; As Directed PRN Reason: Hypoglycemia Sodium Chloride (Normal Saline 0.9%) 1,000 mls @ 50 mls/hr IV .Q20H [facility] Last Admin: 03/01/18 12:32 Dose: Not Given Insulin Glargine 30 units/ (Miscellaneous Medication) 0.3 mls @ 0 mls/hr SC BID [facility] Last Admin: 03/01/18 08:41 Dose: 0.3 mls Insulin Human Lispro (Humalog) 0 units SC .MILD SLIDING SCALE PRN PRN Reason: Mild Correctional Scale Last Admin: 03/01/18 08:56 Dose: 4 unit Ipratropium [place] (Atrovent) 2.5 ml NEB [id number] [facility] Last Admin: 03/01/18 12:06 Dose: 2.5 ml Isosorbide Mononitrate (Imdur) 60 mg PO DAILY [facility] Last Admin: 03/01/18 08:39 Dose: 60 mg Lisinopril (Zestril) 5 mg PO DAILY [facility] Last Admin: 03/01/18 08:39 Dose: 5 mg Pantoprazole Sodium (Protonix) 40 mg PO DAILY [facility] Last Admin: 03/01/18 08:40 Dose: 40 mg Ranolazine (Ranexa) 500 mg PO BID [facility] Last Admin: 03/01/18 08:40 Dose: 500 mg Sertraline HCl (Zoloft) 100 mg PO DAILY [facility] Last Admin: 03/01/18 08:40 Dose: 100 mg Sodium Chloride (Flush - Normal Saline) 10 ml IVF Q12HR [facility] Last Admin: 03/01/18 08:40 Dose: Not Given Sodium Chloride (Flush - Normal Saline) 10 ml IVF PRN PRN PRN Reason: Saline Flush
--- NOTE | 2018-03-01 13:04 | PDOC.CTH ---
Cardiology Progress Note - Subjective He is doing better. He has not had any more episodes of tachycardia. - Objective Vital Signs Temp Pulse Resp BP BP Pulse Ox 03/01/18 12:06 70 14 03/01/18 11:00 98 F 79 16 110/59 L 96 03/01/18 08:39 87 03/01/18 08:00 97.6 F 87 20 108/65 91 L 03/01/18 06:19 70 14 03/01/18 03:21 98.5 F 73 16 100/55 L 96 Weight 193 lb 3.2 oz 02/28/18 03/01/18 03/02/18 06:59 06:59 06:59 Intake Total 1440 2205 240 Output Total 1075 1425 300 Balance 365 780 -60 - Physical Examination General/Neuro: alert & oriented x3, NAD Neck: no JVD present Lungs: CTA, unlabored respirations Heart: RRR Abdomen: NT/ND Extremities: + edema B (1+) - Telemetry Telemetry Rhythm: NSR - Labs Result Diagrams: 03/01/18 08:06 03/01/18 08:06 Troponin/CKMB CK-MB (CK-2) 2.4 ng/mL (0-6.6) 02/27/18 04:52 Troponin I 0.543 ng/mL (< 0.028) H* 02/27/18 08:04 - Assessment/Plan 1. Presyncope 2. Possible SVT 3. DilateD CM 4. S/P AICD 5. S/P Single vessel CABG in 2010 6. S/P IVC filter for DVT\PE 7. Hx of GI Bleeding requiring multiple IV iron infusions. PLAN: - EP evaluated may need ablation. - Will keep his home dose of coreg as si at 6.25 mg BID. - He is a little volume up today. Will give one dose of IV lasix and may discharge home 2 hours after. - Will follow up in the office in 1 month.
[2018-03-01] MEDS ORDERED: Furosemide 40 MG/4 ML VIAL SLOW IVP SCH (13:15)
--- NOTE | 2018-03-01 15:43 | CON ---
DATE OF CONSULTATION: 03/01/2018 ELECTROPHYSIOLOGY CONSULTATION REFERRING PHYSICIAN: Ruddy Morrissey M.D. REASON FOR CONSULTATION: SVT. HISTORY OF PRESENT ILLNESS: Mr. Phillips is a very pleasant 72-year-old male known to our practice for he art failure and also recently had an AICD placed approximately 2 months ago. Today, he was referred to our service for an episode of tachycardia with near syncope. He was at home and began to experien ce some moderate to severe indigestion just prior to having a fluttering sensation in his chest. He became dizzy, lightheaded, and slightly nauseated. He laid down to rest hoping it would pass and rep orts an episode that lasted approximately 20-30 minutes. He has had 2 episodes of this prior to comi ng to the hospital. His ICD was interrogated and did not reveal any arrhythmia episodes; however, he has been monitored in the telemetry and on 02/28/2018 at approximately 5:00 in the morning, he had b een maintaining sinus rhythm at approximately 70 beats per minute and he had fairly abruptly went int o SVT at a rate of 130-140 beats per minute. Symptoms he experienced were consistent with the sympto ms he was experiencing at home with his palpitations. He has not passed out. He denies any perceive d ICD therapies. He was started on IV diltiazem as his rates did sustain fairly rapid for an hour an d a half. However, even on 5 mg per hour of diltiazem, his systolic blood pressure dipped into the 9 0s. Since that time, his diltiazem has been stopped and he converted back to sinus rhythm on his own with just a brief diltiazem therapy. REVIEW OF SYSTEMS: A 12-point review of systems was conducted and is negative except that listed abo ve in the HPI. PAST MEDICAL HISTORY: 1. Chronic systolic congestive heart failure with ischemic cardiomyopathy. A. History of inferior CA and subsequent single vessel bypass in 2010. B. Two-dimensional echo on 04/05/2016 revealing EF 45%-50%. Subsequent echo on 07/06/2017 reveals E F of 25%-30%. C. Single chamber ICD implant approximately in 11/2017. 2. Stage 3 chronic kidney disease. 3. COPD with home oxygen. 4. Pulmonary embolism with subsequent IVC filter placement. 5. Multiple GI bleeds requiring transfusions and intolerance of blood thinners. 6. Coronary artery disease risk factors include hypertension, hyperlipidemia, and diabetes. 7. Renal masses bilaterally with removal in the past. ALLERGIES: CYCLOBENZAPRINE, IODINE, PENICILLIN, and LATEX. HOME MEDICATIONS: Carbidopa/levodopa, atorvastatin, sertraline, Protonix, Imdur, Coreg 6.25 mg b.i.d ., [place] as needed, lisinopril, Lasix, Humalog sliding scale, aspirin 81 mg daily. SOCIAL HISTORY: Negative for alcohol, tobacco, or illicit drugs. FAMILY HISTORY: Noncontributory. PHYSICAL EXAMINATION: VITAL SIGNS: Most recent vital signs 98 degrees Fahrenheit, pulse 79, oxygen saturations 96% on room air, respirations are 16, blood pressure 110/59. GENERAL: This is a well-appearing and well-groomed male in no apparent distress. HEENT: He is normocephalic, atraumatic. Sclerae are anicteric and EOMs are intact. His oral mucosa is moist and pink with adequate dentition. NECK: Supple without jugular venous distention. HEART: Rate is regularly regular. PMI is nondisplaced. LUNGS: Clear to auscultation bilaterally without wheezes, crackles or rhonchi. Respirations are teddy n and unlabored with good bilateral excursion. ABDOMEN: Soft and nontender, without masses and there are positive bowel sounds noted throughout. EXTREMITIES: Warm and dry to touch without clubbing, cyanosis or edema. NEUROLOGIC: Cranial nerves II-XII is grossly intact and nonfocal. Gait was not assessed. LABORATORY DATA AND IMAGING DATA: Hemoglobin 9.9, hematocrit 31.4, and platelet count 225. Chemistr y: Sodium 135, potassium 4.8, BUN 20, creatinine 1.16, TSH 3.85. Telemetry and EKG reviewed. All were personally reviewed, largely reflecting sinus rhythms. An epis ode in the morning of 02/28/2018 at approximately 5:00 a.m. where the patient was in normal sinus rhy thm at a rate of approximately 70 beats per minute and partition and transition to what appears to be an atrial tachycardia at a rate of approximately 135 beats per minute. This episode sustained for a n hour and a half with lower rate slowed and has sustained approximately 70 beats per minute. ICD interrogation was interrogated upon presentation to the hospital and was repeated this morning. No arrhythmia episodes were detected; however, given the fairly controlled rate of this atrial tachyc ardia at 130 beats per minute, this has occurred below the device detect rate and SVT detection, lowe r rate limit was set to 130 beats per minute. Otherwise, device is functioning normally. No ICD dis charges and no ventricular arrhythmias. IMPRESSION: 1. Supraventricular tachycardia versus atrial tachycardia with associated presyncope. 2. Ischemic cardiomyopathy, well compensated. 3. Inclusion of a single chamber ICD, normal functioning. RECOMMENDATIONS: Mr. Phillips is feeling well currently. Although he has had 4 episodes with this heart fluttering and palpitations which he is symptomatic. Today, I recommend he be discharged with a 30-d ay event monitor for further evaluation of his arrhythmias. The episode that was captured on telemet ry does appear to be in atrial tachycardia and recommend AV lupe blocking agents in the right optimi zing beta thai therapy or possibly addition of diltiazem as dxdc-ko-wny-pocket therapy. His blood pressure had dropped while on IV diltiazem and his beta blockers were reduced, however, now that dri p has been discontinued, he may be more tolerant of increasing p.o. agents to prevent his tachycardia episodes. Moving forward, we will see him back in clinic within the next 4-6 weeks to discuss his m onitor results and any potential need for ablation versus EP study. While wearing the monitor, recom mend continuing activity as normal. If not, somewhat more provoking and challenging to try to best c apture the arrhythmias he was having. The patient's history and telemetry was discussed with Dr. Juan Olivia who agrees with this plan of care. Thank you for allowing me to participate in the care of this patient. We will see him back in clinic in 4-6 weeks or sooner if needed.?
[2018-03-01 16:00] VITALS: BP 106/70; TEMP 98.3
--- NOTE | 2018-03-02 11:45 | DIS ---
DATE OF ADMISSION: 02/27/2018 DATE OF DISCHARGE: 03/01/2018 DISCHARGE DISPOSITION: To home. PRIMARY DISCHARGE DIAGNOSIS: Demand ischemia, likely from supraventricular tachycardia. SECONDARY DISCHARGE DIAGNOSES: Coronary artery disease, history of pulmonary embolism with inferior vena cava filter, Parkinson disease, dyslipidemia, chronic anemia, history of congestive heart failur e with an EF of 25% with no acute exacerbation during this hospitalization, chronic kidney disease st age 2, chronic obstructive pulmonary disease, diabetes mellitus type 2. PROCEDURES DONE DURING HOSPITALIZATION: H and H 10 and 31, platelet count 225,000, MCV 77. Discharg e BUN and creatinine is 20 and 1.1, troponin I was indeterminate peaking up to 0.63, CK-MB 2.5. TSH 3.85. DISCHARGE MEDICATIONS: Aspirin 325 mg p.o. daily, Lipitor 40 mg p.o. daily, Sinemet extended release 25/100 mg 1 tab daily, Coreg 3.125 mg twice daily, Lasix 40 mg daily, Humalog 20 units subcu at bedt alicia and q.a.m., [place] p.r.n. for pain, DuoNebs q.i.d. p.r.n., Imdur extended release 60 mg daily, Lev todd 20 units subcu twice daily, lisinopril 5 mg daily, multivitamin 1 tab once daily, Protonix 40 mg daily, Ranexa 500 mg p.o. twice daily, sertraline 100 mg daily, Spiriva inhaler 18 mcg daily. ALLERGIES: CYCLOBENZAPRINE, IODINE, LATEX. INPATIENT CONSULTS: Dr. Morrissey for Cardiology and Dr. Olivia for Electrophysiology. BRIEF COURSE DURING HOSPITALIZATION: Patient initially got admitted on the with complaints of pa lpitations. These were recurrent. On admission, the patient had his AICD interrogated, which did no t reveal any acute arrhythmias. Patient was admitted to telemetry and was closely monitored. On the , patient had episode of SVT going up to 130s. He was placed on Cardizem drip, but patient's sys tolic blood pressure dropped down to 90s and this was stopped. He has had demand ischemia as well an d his medications were optimized including Imdur and Ranexa. The patient was n.p.o. for nearly 24 ho urs and all his insulins were held which led to hyperglycemia. For the last 24 hours, his medication s have been reinstituted for his diabetes and his fingerstick glucose is slowly trending back to base line. He has had consultation with Dr. Morrissey for Cardiology and Dr. Olivia for Electrophysiology. Curtis Olivia's office will arrange for event monitor in addition to the AICD he has and patient will foll ow up with his office in 4-6 weeks. He is otherwise hemodynamically stable and has been cleared for discharge today. Please see a [id number] documentation on [facility] for the day of discharge.
== END 2018-03-01 17:05 | disposition home or self-care (01) | DRG 281 ==
LOC: ERS 23:22 → 2NO 02-27 02:44
PROVIDERS: ADMIT Internal Medicine; ATTEND Internal Medicine
PROC: 4B02XTZ Measurement of Cardiac Defibrillator, External Approach (ICD-10-PCS; principal; 2018-02-27)
DX: I21.A1 Myocardial infarction type 2 (principal); J96.10 Chronic respiratory failure, unspecified whether with hypoxia or hypercapnia; E87.1 Hypo-osmolality and hyponatremia; N17.9 Acute kidney failure, unspecified; I13.0 Hypertensive heart and chronic kidney disease with heart failure and stage 1 through stage 4 chronic kidney disease, or unspecified chronic kidney disease; I50.22 Chronic systolic (congestive) heart failure; J44.9 Chronic obstructive pulmonary disease, unspecified; Z99.81 Dependence on supplemental oxygen; Z95.810 Presence of automatic (implantable) cardiac defibrillator; Z88.8 Allergy status to other drugs, medicaments and biological substances; Z91.040 Latex allergy status; Z79.4 Long term (current) use of insulin; Z79.82 Long term (current) use of aspirin; E03.9 Hypothyroidism, unspecified; E11.22 Type 2 diabetes mellitus with diabetic chronic kidney disease; I25.5 Ischemic cardiomyopathy; I25.2 Old myocardial infarction; Z95.1 Presence of aortocoronary bypass graft; N18.3 Chronic kidney disease, stage 3 (moderate); E78.5 Hyperlipidemia, unspecified; I25.10 Atherosclerotic heart disease of native coronary artery without angina pectoris; Z86.711 Personal history of pulmonary embolism; G20 Parkinson's disease; E11.65 Type 2 diabetes mellitus with hyperglycemia; D53.9 Nutritional anemia, unspecified
CPT/HCPCS: 36415; 36416; 80048; 82553; 84443; 84484; 85025; 93005; 94640; A4216; J1940; J7050; J7620; J7644; Q0162

== ENCOUNTER 2018-03-09 05:17 | Inpatient (IN) | payer MEDICARE ==
[2018-03-09] MEDS ORDERED: Ondansetron ODT 4 MG TAB ONE (05:32)
[2018-03-09] MEDS ORDERED: Sucralfate 1 GM/10 ML UDCUP ONE (05:53)
[2018-03-09] MEDS ORDERED: Lorazepam 2 MG/ML VIAL ONE (05:57)
[2018-03-09] MEDS ORDERED: Norepinephrine 8 MG/0.9% NS 250 ML ONE (06:25)
[2018-03-09 07:23] LABS: Troponin I 0.024 ng/mL (< 0.028)
[2018-03-09] MEDS ORDERED: Chloraseptic Spray 180 ml Bottle PO PRN (08:31)
[2018-03-09] MEDS ORDERED: Sodium Chloride 0.65% Nasal 44 ML BOT EA NARE PRN (08:31)
[2018-03-09] MEDS ORDERED: Eucerin (Mineral Oil/Petrolatum,White) 30 gm Jar TOP PRN (08:31)
[2018-03-09] MEDS ORDERED: Ondansetron ODT 4 MG TAB PO PRN (08:31)
[2018-03-09] MEDS ORDERED: Zolpidem Tartrate 5 MG TAB PO PRN (08:31)
[2018-03-09] MEDS ORDERED: Loperamide HCl 2 MG CAP PO PRN (08:31)
[2018-03-09] MEDS ORDERED: Dextrose 5% in Water 1,000 ML IV PRN (08:31)
[2018-03-09] MEDS ORDERED: Mag-Al 1200 mg/1200 mg/30 ML UDCUP PO PRN (08:31)
[2018-03-09] MEDS ORDERED: Diabetic Tussin 200 MG/10 ML UDCUP PO PRN (08:31)
[2018-03-09] MEDS ORDERED: HumaLOG 300 UNITS/3 ML VIAL SC PRN (08:31)
[2018-03-09] MEDS ORDERED: Ondansetron HCl/PF 4 MG/2 ML Vial IVP PRN (08:31)
[2018-03-09] MEDS ORDERED: Dextrose 50% Abboject 50 ML SYRINGE SLOW IVP PRN (08:31)
[2018-03-09] MEDS ORDERED: Senokot 8.6 MG TAB PO PRN (08:31)
[2018-03-09] MEDS ORDERED: Loratadine 10 MG TAB PO PRN (08:31)
[2018-03-09] MEDS ORDERED: DOPamine 400 MG/D5W 250 ML 250 ML IVPB SCH (08:31)
[2018-03-09] MEDS ORDERED: Milk Of Magnesia 30 ML UDCUP PO PRN (08:31)
[2018-03-09] MEDS ORDERED: Artificial Tears 18 DROP/0.9 ML EA EYE PRN (08:31)
[2018-03-09] MEDS ORDERED: cefTRIAXone\\ROCEPHIN 1 GM in Sodium Chloride 0.9% 100 ML IVPB SCH (09:00)
[2018-03-09] MEDS ORDERED: Famotidine/PF 20 mg/2ml Vial SLOW IVP SCH (09:00)
--- NOTE | 2018-03-09 09:03 | RAD ---
PORTABLE CHEST 1 VIEW: DATE: 03/09/18. TIME: 6:42 a.m. HISTORY: Central line placement, hypotension, abdominal pain. FINDINGS/IMPRESSION: There has been interval placement of a right internal jugular central line with tip in the projection of the SVC since earlier exam of 2:12 a.m. from the same date. No pneumothorax is seen. The remain nicole of the exam is stable. POS: SYLVESTER
[2018-03-09] MEDS ORDERED: Norepinephrine 8 MG/0.9% NS 250 ML IVPB SCH (09:30)
[2018-03-09] MEDS: Sodium Chloride 0.9% 1,000 ML IV SCH ×2 (09:35→19:36)
[2018-03-09] MEDS: Saccharomyces boulardii 250 MG CAP PO SCH (09:45)
[2018-03-09] MEDS ORDERED: Famotidine 20 MG TAB PO SCH ×2 (09:45→21:00)
[2018-03-09] MEDS: Enoxaparin Sodium 40 MG/0.4 ML SYRINGE SC SCH (09:46)
[2018-03-09] MEDS: HumaLOG 300 UNITS/3 ML VIAL SC PRN ×3 (10:23→15:36)
--- NOTE | 2018-03-09 11:16 | HP ---
PRIMARY CARE PHYSICIAN: Swapnil Tapia M.D. REASON FOR ADMISSION: Septic shock. 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 Patient reports that he is sick for last 4 days. He was having nausea, vomiting, and abdominal dis comfort. He was also having urinary tract infection symptoms with dysuria and increased frequency. The patient was also having on and off fever at home. He was feeling weak. He was having very poor appetite. As his symptoms had gotten worse and worse over the last couple of days and that is why night he decided to go to [facility]. At [facility], this patient was hypotensive with the lowest blood pressure was 76/47 . He was febrile with a temperature of 100.5. Patient was started on dopamine drip and patient was given Rocephin and IV fluid and subsequently he was transferred to our hospital for admission. In our emergency room, this patient was required central line placement and subsequently Levophed dri p was started. He was still hypotensive and after Levophed drip, patient's blood pressure started im proving. Patient was also given IV fluid 2 liter and vancomycin was given. Subsequently, patient wa s admitted to ICU for close monitoring. Patient denies any chest pain, palpitation. He denies any shortness of breath. He does have intermi ttent cough. He denies any dizziness, syncope. He denies any melena, hematochezia, hematuria, or fo karthik motor or sensory symptoms. 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 PAST SURGICAL HISTORY: Coronary artery bypass grafting, IVC filter for DVT and PE, multiple cardiac catheterizations with stent placement, excision of renal mass, multiple EGD and colonoscopy. PAST PSYCHIATRIC HISTORY: Reviewed and negative. ALLERGIES: FLEXERIL, PLAVIX, IODINE, and LATEX. SOCIAL HISTORY: Patient lives at home. He is . He denies any tobacco, alcohol or illicit dr ug abuse. He is a former smoker, quit smoking more than 10 years ago. He is retired. FAMILY HISTORY: No strong family history of premature coronary artery disease, stroke or cancer. REVIEW OF SYSTEMS: The following complete review of systems was negative, unless otherwise mentioned in the HPI or below: Constitutional: Weight loss or gain, ability to conduct usual activities. Skin: Rash, itching. Eyes: Double vision, pain. ENT/Mouth: Nose bleeding, neck stiffness, pain, tenderness. Cardiovascular: Palpitations, dyspnea on exertion, orthopnea. Respiratory: Shortness of breath, wheezing, cough, hemoptysis, fever or night sweats. Gastrointestinal: Poor appetite, abdominal pain, heartburn, nausea, vomiting, constipation, or diarr hea. Genitourinary: Urgency, frequency, dysuria, nocturia. Musculoskeletal: Pain, swelling. Neurologic/Psychiatric: Anxiety, depression. Allergy/Immunologic: Skin rash, bleeding tendency. Please see my HPI for pertinent positive and negative. All other review of systems reviewed and nega tive except as mentioned in the HPI. CURRENT HOME MEDICATIONS: Carbidopa/levodopa extended release 25/100 one tablet daily in the morning , Lipitor 40 mg p.o. in the morning, Protonix 40 mg p.o. daily, Lasix 20 mg p.o. daily, Coreg 6.25 mg p.o. at bedtime, Imdur 60 mg daily, Synthroid 25 mcg p.o. daily, Zoloft 100 mg p.o. daily, lisinopri l 10 mg p.o. daily, [place] 10 one tablet q.6 hourly p.r.n., gabapentin 300 mg 3 times daily, Lantus 20 units subcu daily, aspirin 325 mg p.o. daily, NovoLog insulin as per sliding scale. EMERGENCY ROOM COURSE: Patient was given dopamine drip, Rocephin and IV fluid at [facility] and patient was given vancomycin, IV fluid, Levophed drip, Ativan 0.5 mg, Carafate, and Zofr an in our emergency room. PHYSICAL EXAMINATION: VITAL SIGNS: On arrival to our emergency room, blood pressure 97/62, pulse 101, respiratory rate 20, temperature 98.5, saturation 99% on room air, weight 85.8 kilograms. GENERAL: Patient is currently alert, awake, arousable, but still sleepy as he did not sleep last nig ht. HEAD: Normocephalic, atraumatic. EYES: Pupils round, reactive to light. Extraocular muscle intact. ENT: Somewhat dry appearing mucous membranes, no oral lesion, no pharyngeal erythema, no exudate. NECK: Supple, no obvious JVD, no thyromegaly, no carotid bruit. LUNGS: Clear to auscultation without any rhonchi or rales. CARDIAC: S1 and S2 appears regular without any significant murmur, no gallop, no rub. ABDOMEN: Soft, bowel sounds present, nontender, nondistended. No organomegaly, no mass, no suprapub ic tenderness. BACK: The patient does have bilateral CVA tenderness. Patient also has mild suprapubic discomfort o n deep palpation. GENITALIA: Within normal limits. NEUROLOGIC: Nonfocal examination. He moves all 4 limbs. Grossly nonfocal neurological examination. PSYCHIATRIC: Normal affect. HEMATOLOGIC SYSTEM: No palpable lymph node. IMAGING DATA AND SIGNIFICANT LABORATORY DATA: 1. Abdomen and pelvis CT scan done at [facility] which he reported as and based on my review, no hydronephrosis, nonobstructive left renal calculi, constipation, L2 vertebral compressi on fracture, mild nonspecific perinephric stranding. 2. Chest x-ray based on my review, central line placement, no acute process. 3. CBC: WBC 14.0, hemoglobin 8.6, MCV 74.2, platelet 182. INR 1.1. 4. BMP: Sodium 130, potassium 5.0, chloride 101, carbon dioxide 22, anion gap 12, BUN 21, creatinin e 1.33, glucose 267, calcium 8.1, lactic acid 1.0. 5. LFT: AST 9, ALT less than 7, alkaline phosphatase 77, albumin 3.6, lipase 13, CK 38, CK-MB 0.6, troponin I 0.030 and then 0.024. Urinalysis suggestive of urinary tract infection. ASSESSMENT AND PLAN/IMPRESSION: 1. Septic shock. This patient was hypotensive. He required vasopressor support. The patient is cu rrently on Levophed drip which we will titrate based on hemodynamics in CCU. The patient will also c ontinue to get IV fluid with NS at 100 mL per hour. The patient will be on broad spectrum antibiotic therapy with Rocephin, Levaquin, and vancomycin. We will follow up on culture result and change ant ibiotic accordingly. 2. Sepsis with acute organ dysfunction. Patient has acute kidney injury, demand ischemia and hypote nsion. The patient is already on broad spectrum antibiotic therapy with Rocephin, Levaquin, and vanc omycin and patient is getting IV fluid and we will follow up on culture result. 3. Acute kidney injury most likely related with sepsis and urinary tract infection. Patient will be given IV fluid and we will repeat BMP tomorrow. We will avoid nephrotoxin agent. 4. Demand ischemia of myocardium. We will do serial cardiac enzymes x3. 5. Urinary tract infection. This is complicated. The patient does have CVA tenderness, most likely has ascending urinary tract infection with acute bilateral pyelonephritis. The patient is already o n broad spectrum antibiotic therapy with Rocephin, Levaquin, vancomycin and based on culture result, we will change antibiotic therapy accordingly. We will treat symptomatically while in hospital. 6. Hyponatremia likely due to volume depletion. The patient will be given IV fluid and we will repe at BMP tomorrow. 7. Anemia, microcytic. We will continue ferrous sulfate 325 mg p.o. daily. We will check ferritin level tomorrow. We will repeat labs tomorrow. If needed, we will consider giving him iron infusion while in hospital. 8. Diabetes type 2. Continue insulin as per sliding scale protocol. Diabetic diet will be given. 9. History of hypertension, but currently low blood pressure and that is why we will hold on all ant ihypertensive medications. 10. Gastroesophageal reflux disease. The patient is Pepcid 20 mg p.o. b.i.d. 11. Parkinson's disease. Patient will continue carbidopa/levodopa as per home dosage. 12. Dyslipidemia. Continue Lipitor 40 mg p.o. at bedtime. 13. Chronic obstructive pulmonary disease. We will continue DuoNeb therapy q.6 hourly as patient is admitted in ICU. We will consult leather grainer women's health care nurse practitioner as well. 14. Deep venous thrombosis prophylaxis, Lovenox 40 mg subcu daily. 15. Gastrointestinal prophylaxis, Pepcid 20 mg p.o. b.i.d. 16. Anxiety and depression. We will continue patient's home medication, Zoloft. 17. History of hypertension, but currently low blood pressure and that is why we will hold on all an tihypertensive medications. 18. Chronic low back pain. Patient's pain will be controlled with pain medication. 19. Deep venous thrombosis prophylaxis, Lovenox 40 mg subcu daily. 20. Gastrointestinal prophylaxis, Pepcid 20 mg p.o. b.i.d. 21. Code status: The patient is FULL CODE. The patient's is surrogate decision maker. Disposition plan based on clinical course. We are expecting patient's stay in hospital more than 2 m idnights. Plan of care discussed with the patient in detail at bedside.
--- NOTE | 2018-03-09 11:57 | CON ---
DATE OF CONSULTATION: 03/09/2018 HISTORY: This is a 72-year-old gentleman, 5 feet 6 inches, 166 pounds, who presented to the ER from [place] with abdominal pain, nausea, vomiting, loss of control of his bladder. He tells me he was just recently discharged from the hospital on 01/30/2018 after he had an AICD plac ed about 4 weeks ago. In the ER, he was hypertensive. He received a large volume of fluids. [facility] on a dopamine drip and it has since been apparently discontinued. He is awake, alert and re sponsive. His blood pressure apparently was 72/46 on arrival, his sats are 93% on room air, temperat ure 100.4, respirations 20. He denies any pain or discomfort. He denied any chest pain. He had difficulty breathing. He can barely walk even 20 feet without getting markedly short of breat h. He has longstanding history of tobacco abuse, a pack a day for 30 years, quit smoking 20 years ago. PAST MEDICAL HISTORY: Extensively outlined, pertinent for COPD, CHF, coronary artery disease, histor y of GI bleed associated with pulmonary embolism requiring a filter. PAST SURGICAL HISTORY: AICD, bypass single vessel years ago in [place], inferior cava filter placed in. ALCOHO: None. TOBACCO: As noted. PRIMARY CARE PHYSICIAN: Dr. Tapia in [place]. MEDICATIONS: As outlined includes: 1. Spiriva inhaler. 2. Zoloft 100. 3. Ranexa 500. 4. Protonix 40. 5. Lisinopril 5. 6. Levemir 20 b.i.d. 7. ISMO 60. 8. Nebulizer. 9. Lasix 40. 10. Coreg 3.125. 11. Sinemet 1 tablet a day. 12. Lipitor 40. 13. Aspirin. ALLERGIES: IODINE, LATEX and FLEXERIL. . SOCIAL/FAMILY HISTORY: Otherwise unremarkable. REVIEW OF SYSTEMS: Ten point negative. PHYSICAL EXAMINATION: VITAL SIGNS: Blood pressure is 108/80, off all pressors. Pulse 89, respiration is 24, sat 94%. GENERAL: Awake, alert, responsive, in no distress. CHEST: Decreased breath sounds, minimal crackles. CARDIAC: Normal S1, S2, no gallops. ABDOMEN: Soft. LABORATORY: Creatinine 1.33. His white count 14,000, H&H 8 and 26, platelet count 182. Urine shows greater than 50 WBCs and RBCs. X-RAY FINDINGS: Chest x-ray was normal. He had a CT done of his abdomen at 3:00 in the morning whic h shows no renal calculi, no free air. Some L2 vertebral compression fractures. IMPRESSION: 1. Urosepsis. 2. Hypertension. 3. Chronic obstructive pulmonary disease. 4. Diabetes. 5. Coronary artery disease. 6. Congestive heart failure, status post AICD. 7. Status post filter. PLAN: He appears to have improved. I am going to get a cortisol level baseline. Continue IV fluids . Continue broad-spectrum antibiotics. He was started on ceftriaxone and Levaquin. Deescalate once cultures are back. I will follow. This is a consultation note, 70 minutes, 50% spent in direct patient care.
[2018-03-09] MEDS: Acetaminophen 325 MG TAB PO PRN (19:10)
[2018-03-09] MEDS ORDERED: Diltiazem HCl 125 MG, Admixture Fee 1 EACH in Sodium Chloride 0.9% 100 ML IVPB SCH (19:15)
[2018-03-09] MEDS ORDERED: Non-Formulary Item 1 EACH (Levemir Flexpen [Levemir Flexpen] 50 UNIT) SC SCH (21:00)
[2018-03-09] MEDS: Insulin Glargine 50 UNITS in Pre-Filled Syringe 1 EACH SC SCH (21:34)
[2018-03-09] MEDS: HumaLOG 300 UNITS/3 ML VIAL SC SCH (21:37)
[2018-03-10] MEDS: HYDROcodone/Acetaminophen 5/325 mg Tablet PO PRN ×2 (02:17→22:30)
[2018-03-10] MEDS: cefTRIAXone\\ROCEPHIN 1 GM in Sodium Chloride 0.9% 100 ML IVPB SCH (05:45)
[2018-03-10 05:47] LABS: #Eosinphils 0.2 thou/uL (0.0-0.7); #Lymphocytes 1.2 thou/uL (1.20-3.40); #Monocytes 0.9 thou/uL (0.11-0.59); #Neutrophils 5.4 thou/uL (1.40-6.50); %Basophils 0.3 % (0.0-1.0); %Eosinophils 2.3 % (0.0-10.0); %Monocytes 11.8 % (0.0-10.0); %Neutrophils 69.5 % (42.0-75.0); Hemoglobin 8.2 g/dL (14.0-18.0); Mean Corpuscular HGB CONC 31.5 g/dL (32.0-36.0); Mean Corpuscular Hemoglobin 24.3 pg (27.0-31.0); Mean Corpuscular Volume 77.2 fl (80.0-94.0); Mean Platelet Volume 8.5 fL (7.4-10.4); Platelet Count 156 thou/uL (130-400); RBC Distribution Width 17.2 % (11.5-14.5); Red Blood Cell (RBC) Count 3.35 mill/uL (4.70-6.10); White Blood Cell (WBC) Count 7.7 thou/uL (4.8-10.8)
[2018-03-10 06:04] LABS: ALT (SGPT) 10 U/L (8-55); AST (SGOT) 31 U/L (5-34); Albumin 3.5 g/dL (3.4-4.8); Alkaline Phosphatase 68 U/L (40-150); Anion Gap 10 mmol/L (10-20); BUN (Urea Nitrogen) 17 mg/dL (8.4-25.7); Bilirubin, Total 0.5 mg/dL (0.2-1.2); Calc. Creatinine Clearance 63 mL/min (70-130); Calcium 8.5 mg/dL (7.8-10.44); Carbon Dioxide 23 mmol/L (23-31); Chloride 106 mmol/L (98-107); Estimated GFR-MDRD 65; Glucose 197 mg/dL (83-110); Magnesium 2.5 mg/dL (1.6-2.6); Potassium 4.4 mmol/L (3.5-5.1); Protein, Total 6.5 g/dL (5.8-8.1); Sodium 135 mmol/L (136-145)
[2018-03-10] MEDS ORDERED: Spiriva 18 MCG CAP (Box of 5 Caps) INH SCH (07:00)
[2018-03-10] MEDS: Atorvastatin Calcium 40 MG TAB PO SCH (08:22)
[2018-03-10] MEDS: Sodium Chloride 0.9% 1,000 ML IV SCH (08:22)
[2018-03-10] MEDS: Carbidopa/Levodopa CR 50-200 mg Tablet PO SCH (08:23)
[2018-03-10] MEDS: Aspirin 325 mg Enteric Coated Tablet PO SCH (08:23)
[2018-03-10] MEDS: Saccharomyces boulardii 250 MG CAP PO SCH (08:23)
[2018-03-10] MEDS: Multivit, Therapeutic 1 TAB PO SCH (08:23)
[2018-03-10] MEDS: Enoxaparin Sodium 40 MG/0.4 ML SYRINGE SC SCH (08:25)
--- NOTE | 2018-03-10 09:42 | PDOC.PN ---
- Subjective Encounter Start Date: 03/10/18 Encounter Start Time: 07:30 -: old records requested/rev Patient seen and examined for sepsis,. No new complaints. No overnight events - Objective Resuscitation Status: Resuscitation Status FULL:Full Resuscitation MAR Reviewed: Yes Vital Signs & Weight: Vital Signs (12 hours) Temp Pulse Resp BP Pulse Ox 03/10/18 07:11 99 03/10/18 07:10 88 16 99 03/10/18 04:00 98.4 F 86 14 145/65 H 96 03/09/18 23:14 89 16 99 Weight Weight 181 lb 4.8 oz Most Recent Monitor Data Heart Rate from ECG 94 NIBP 121/68 NIBP BP-Mean 77 Respiration from ECG 21 SpO2 99 I&O: 03/09/18 03/10/18 03/11/18 06:59 06:59 06:59 Intake Total 3624 250 Output Total 3875 Balance -251 250 Result Diagrams: 03/10/18 05:37 03/10/18 05:37 Additional Labs: Accuchecks 03/10/18 03/10/18 03/09/18 06:23 00:09 21:32 POC Glucose 167 H 315 H 235 H 03/09/18 03/09/18 03/09/18 15:33 13:17 10:23 POC Glucose 253 H 332 H 348 H EKG Reviewed by me: Yes (nsr) Phys Exam - Physical Examination Constitutional: NAD HEENT: PERRLA, moist MMs, sclera anicteric Neck: no nodes, no JVD, supple, full ROM Respiratory: no wheezing, no rales, no rhonchi Cardiovascular: RRR, no significant murmur, no rub Gastrointestinal: soft, non-tender, no distention, positive bowel sounds Musculoskeletal: no edema, pulses present Neurological: non-focal, normal sensation, moves all 4 limbs Lymphatic: no nodes Psychiatric: normal affect, A&O x 3 Skin: no rash, normal turgor, cap refill <2 seconds Dx/Plan (1) Acute kidney injury Code(s): N17.9 - ACUTE KIDNEY FAILURE, UNSPECIFIED Status: Acute (2) Demand ischemia Code(s): I24.8 - OTHER FORMS OF ACUTE ISCHEMIC HEART DISEASE Status: Acute (3) Hyponatremia Code(s): E87.1 - HYPO-OSMOLALITY AND HYPONATREMIA Status: Acute (4) Sepsis with acute organ dysfunction Code(s): A41.9 - SEPSIS, UNSPECIFIED ORGANISM; R65.20 - SEVERE SEPSIS WITHOUT SEPTIC SHOCK Status: Acute (5) Septic shock Code(s): A41.9 - SEPSIS, UNSPECIFIED ORGANISM; R65.21 - SEVERE SEPSIS WITH SEPTIC SHOCK Status: Acute (6) UTI (urinary tract infection) Status: Acute (7) CAD (coronary artery disease) Code(s): I25.10 - ATHSCL HEART DISEASE OF [place] CORONARY ARTERY W/O ANG PCTRS Status: Chronic Qualifiers: Comment: cabg done in [facility] 2012 (8) CHF (congestive heart failure), NYHA class III Code(s): I50.9 - HEART FAILURE, UNSPECIFIED Status: Chronic Comment: ef of 25%, aicd placed in 12/2017 (9) CKD (chronic kidney disease) stage 3, GFR 30-59 ml/min Code(s): N18.3 - CHRONIC KIDNEY DISEASE, STAGE 3 (MODERATE) Status: Chronic (10) COPD (chronic obstructive pulmonary disease) Status: Chronic Qualifiers: Comment: on home oxygen prn (does not use it continuosly) (11) Chronic low back pain Code(s): M54.5 - LOW BACK PAIN; G89.29 - OTHER CHRONIC PAIN Status: Chronic (12) Dyslipidemia Code(s): E78.5 - HYPERLIPIDEMIA, UNSPECIFIED Status: Chronic (13) History of pulmonary embolism Code(s): Z86.711 - PERSONAL HISTORY OF PULMONARY EMBOLISM Status: Chronic Comment: h/o ivc filter (14) Hx of CABG Status: Chronic (15) Microcytic anemia Code(s): D50.9 - IRON DEFICIENCY ANEMIA, UNSPECIFIED Status: Chronic (16) Parkinson disease Code(s): G20 - PARKINSON'S DISEASE Status: Chronic (17) Type 2 diabetes mellitus Status: Chronic Qualifiers: - Plan cont current plan of care, continue antibiotics * medication reviewed as below * symptomatic treatment * DC IVF. * continue rocephin and levaquin * follow on culture Review of Systems - Review of Systems Constitutional: negative: fever, chills, sweats, weakness, malaise, other Eyes: negative: Pain, Vision Change, Conjunctivae Inflammation, Eyelid Inflammation, Redness, Other ENT: negative: Ear Pain, Ear Discharge, Nose Pain, Nose Discharge, Nose Congestion, Mouth Pain, Mouth Swelling, Throat Pain, Throat Swelling, Other Respiratory: negative: Cough, Dry, Shortness of Breath, Hemoptysis, SOB with Excertion, Pleuritic Pain, Sputum, Wheezing Cardiovascular: negative: chest pain, palpitations, orthopnea, paroxysmal nocturnal dyspnea, edema, light headedness, other Gastrointestinal: negative: Nausea, Vomiting, Abdominal Pain, Diarrhea, Constipation, Melena, Hematochezia, Other Genitourinary: negative: Dysuria, Frequency, Incontinence, Hematuria, Retention , Other Musculoskeletal: negative: Neck Pain, Shoulder Pain, Arm Pain, Back Pain, Hand Pain, Leg Pain, Foot Pain, Other Skin: negative: Rash, Lesions, Howie, Bruising, Other - Medications/Allergies Allergies/Adverse Reactions: Allergies Allergy/AdvReac Type Severity Reaction Status Date / Time cyclobenzaprine HCl Allergy Verified 02/27/18 03:49 [From Flexeril] iodine Allergy Hives Verified 02/27/18 03:49 latex Allergy Rash Verified 02/27/18 03:49 Medications: Current Medications Acetaminophen (Tylenol) 650 mg PO Q4H PRN PRN Reason: Headache/Fever or Pain Last Admin: 03/09/18 19:10 Dose: 650 mg Hydrocodone Bitart/Acetaminophen ([place] 5/325) 1 tab PO Q4H PRN PRN Reason: Moderate Pain (4-6) Last Admin: 03/10/18 02:17 Dose: 1 tab Al Hydroxide/Mg Hydroxide (Maalox) 30 ml PO Q6H PRN PRN Reason: Heartburn or Indigestion Albuterol/Ipratropium (Duoneb) 3 ml NEB [id number] [facility] Last Admin: 03/10/18 07:10 Dose: 3 ml Artificial Tears (Tears Naturale) 0 drop EA EYE PRN PRN PRN Reason: Dry Eyes Aspirin (Ecotrin) 325 mg PO DAILY [facility] Last Admin: 03/10/18 08:23 Dose: 325 mg Atorvastatin Calcium (Lipitor) 40 mg PO DAILY [facility] Last Admin: 03/10/18 08:22 Dose: 40 mg Carbidopa/Levodopa (Sinemet Cr 50/200) 0.5 tab PO DAILY [facility] Last Admin: 03/10/18 08:23 Dose: 0.5 tab Dextrose/Water (Dextrose 50%) 25 gm SLOW IVP PRN PRN PRN Reason: Hypoglycemia Enoxaparin Sodium (Lovenox) 40 mg SC 0900 [facility] Last Admin: 03/10/18 08:25 Dose: 40 mg Glucagon (Glucagon) 1 mg IM PRN PRN PRN Reason: Hypoglycemia Guaifenesin (Robitussin Sf) 200 mg PO Q4H PRN PRN Reason: Cough Dextrose/Water (D5w) 1,000 mls @ 0 mls/hr IV .Q0M PRN; As Directed PRN Reason: Hypoglycemia Levofloxacin 500 mg/ Device 100 mls @ 100 mls/hr IVPB Q24HR [facility] Last Admin: 03/09/18 09:47 Dose: 100 mls Ceftriaxone Sodium 1 gm/ (Sodium Chloride) 100 mls @ 200 mls/hr IVPB Q24HR [facility] Last Admin: 03/10/18 05:45 Dose: 100 mls Vancomycin HCl 1.25 gm/ Sodium (Chloride) 250 mls @ 166.667 mls/hr IVPB 0800 [facility] Insulin Glargine 50 units/ (Miscellaneous Medication) 0.5 mls @ 0 mls/hr SC BID [facility] Last Admin: 03/09/18 21:34 Dose: 0.5 mls Insulin Human Lispro (Humalog) 0 units SC .MODERATE SLIDING SC PRN PRN Reason: Moderate Correctional Scale Last Admin: 03/09/18 15:36 Dose: 6 unit Insulin Human Lispro (Humalog) 0 units SC .BEDTIME SLIDING SC PRN PRN Reason: Bedtime Correctional Scale Insulin Human Lispro (Humalog) 20 units SC [facility] Last Admin: 03/09/18 21:37 Dose: 20 units Insulin Human Lispro (Humalog) [facility] [place] [facility] Loperamide HCl (Imodium) 2 mg PO PRN PRN PRN Reason: Diarrhea/Loose Stools Loratadine (Claritin) 10 mg PO DAILYPRN PRN PRN Reason: Sinus Symptoms Magnesium Hydroxide (Milk Of Magnesium) 30 ml PO DAILYPRN PRN PRN Reason: Constipation Mineral Oil/White Petrolatum (Eucerin Cream) 0 gm TOP BIDPRN PRN PRN Reason: Dry Skin Miscellaneous Medication (Pharmacy To Dose) 1 each IVPB ASDIR [facility] Multivitamins (Theragran) 1 tab PO DAILY [facility] Last Admin: 03/10/18 08:23 Dose: 1 tab Ondansetron HCl (Zofran Odt) 4 mg PO Q6H PRN PRN Reason: Nausea/Vomiting Ondansetron HCl (Zofran) 4 mg IVP Q6H PRN PRN Reason: Nausea/Vomiting Pantoprazole Sodium (Protonix) 40 mg PO BID [facility] Last Admin: 03/10/18 08:23 Dose: 40 mg Phenol (Chloraseptic [place] 180 Ml Bot) 0 ml PO PRN PRN PRN Reason: Sore Throat Ranolazine (Ranexa) 500 mg PO BID [facility] Last Admin: 03/10/18 08:22 Dose: 500 mg Saccharomyces Boulardii (Florastor) 250 mg PO DAILY [facility] Last Admin: 03/10/18 08:23 Dose: 250 mg Senna (Senokot) 2 tab PO HSPRN PRN PRN Reason: Constipation Sertraline HCl (Zoloft) 100 mg PO DAILY [facility] Last Admin: 03/10/18 08:22 Dose: 100 mg Sodium Chloride ([place] Nasal [place] 0.65%) 0 ml EA NARE QIDPRN PRN PRN Reason: Nasal Congestion Sodium Chloride (Flush - Normal Saline) 10 ml IVF Q12HR [facility] Last Admin: 03/09/18 19:47 Dose: 10 ml Sodium Chloride (Flush - Normal Saline) 10 ml IVF PRN PRN PRN Reason: Saline Flush Zolpidem Tartrate (Ambien) 5 mg PO HSPRN PRN PRN Reason: Insomnia
[2018-03-10] MEDS: Insulin Glargine 50 UNITS in Pre-Filled Syringe 1 EACH SC SCH ×2 (09:55→20:52)
[2018-03-10] MEDS: HumaLOG 300 UNITS/3 ML VIAL SC SCH ×2 (09:55→20:51)
[2018-03-10] MEDS: Vancomycin HCl 1.25 GM in Sodium Chloride 0.9% 250 ML 250 ML IVPB SCH (09:57)
--- NOTE | 2018-03-10 13:41 | PRG ---
DATE OF SERVICE: 03/10/2018 SUBJECTIVE: This morning, awake, alert, and responsive. Doing well. No pain, no shortness of breat h. OBJECTIVE: VITAL SIGNS: Sats are 90% on room air, blood pressure 145/65, temperature 98, respirations 16, and p ulse 88. CHEST: No wheezing or crackles. CARDIAC: Normal S1 and S2. No gallops. ABDOMEN: Soft. No masses. LABORATORY DATA: Electrolytes are normal. White count normal, hemoglobin and hematocrit is stable. Cultures so far are negative. Patient's sepsis syndrome has improved. Deescalate antibiotics. Pulmonary or Critical Care will fol low at a distance.
[2018-03-11] MEDS: cefTRIAXone\\ROCEPHIN 1 GM in Sodium Chloride 0.9% 100 ML IVPB SCH (05:25)
[2018-03-11 07:14] LABS: Vancomycin, Trough 6.4 ug/mL
[2018-03-11] MEDS: Atorvastatin Calcium 40 MG TAB PO SCH (08:36)
[2018-03-11] MEDS: Carbidopa/Levodopa CR 50-200 mg Tablet PO SCH (08:36)
[2018-03-11] MEDS: Ferrous Sulfate 325 MG TAB PO SCH (08:36)
[2018-03-11] MEDS: Aspirin 325 mg Enteric Coated Tablet PO SCH (08:36)
[2018-03-11] MEDS: HumaLOG 300 UNITS/3 ML VIAL SC SCH (08:38)
[2018-03-11] MEDS: Enoxaparin Sodium 40 MG/0.4 ML SYRINGE SC SCH (08:38)
[2018-03-11] MEDS: Saccharomyces boulardii 250 MG CAP PO SCH (08:39)
[2018-03-11] MEDS: Insulin Glargine 50 UNITS in Pre-Filled Syringe 1 EACH SC SCH ×2 (08:39→21:48)
[2018-03-11] MEDS: Multivit, Therapeutic 1 TAB PO SCH (08:39)
[2018-03-11] MEDS: Vancomycin HCl 1.25 GM in Sodium Chloride 0.9% 250 ML 250 ML IVPB SCH (10:20)
[2018-03-11] MEDS: Vancomycin HCl 1 GM in Premix Bag 1 BAG IVPB SCH ×2 (10:37→21:31)
--- NOTE | 2018-03-11 10:51 | PDOC.PN ---
- Subjective Encounter Start Date: 03/11/18 Encounter Start Time: 07:10 Patient seen and examined for UTI, had low blood sugar. No new complaints. No overnight events - Objective Resuscitation Status: Resuscitation Status FULL:Full Resuscitation MAR Reviewed: Yes Vital Signs & Weight: Vital Signs (12 hours) Temp Pulse Resp BP BP Pulse Ox 03/11/18 09:58 97.4 F L 88 12 110/55 L 96 03/11/18 08:57 118/62 03/11/18 07:43 98.3 F 102 H 18 189/88 H 96 03/11/18 06:51 94 16 95 03/11/18 04:00 87 13 154/67 H 96 03/11/18 00:26 84 16 98 Weight Weight 182 lb 1.6 oz Most Recent Monitor Data Heart Rate from ECG 94 NIBP 121/68 NIBP BP-Mean 77 Respiration from ECG 21 SpO2 99 I&O: 03/10/18 03/11/18 03/12/18 06:59 06:59 06:59 Intake Total 3624 550 Output Total 3875 Balance -251 550 Result Diagrams: 03/10/18 05:37 03/10/18 05:37 Additional Labs: Accuchecks 03/11/18 03/10/18 03/10/18 04:27 20:49 16:31 POC Glucose 162 H 139 H 176 H 03/10/18 11:02 POC Glucose 194 H Phys Exam - Physical Examination Constitutional: NAD HEENT: PERRLA, moist MMs, sclera anicteric Neck: no JVD, supple Respiratory: no wheezing, no rales, no rhonchi Cardiovascular: RRR, no significant murmur, no rub Gastrointestinal: soft, non-tender, no distention, positive bowel sounds Musculoskeletal: no edema, pulses present Neurological: non-focal, normal sensation, moves all 4 limbs Psychiatric: normal affect, A&O x 3 Skin: no rash, normal turgor Dx/Plan (1) Acute kidney injury Code(s): N17.9 - ACUTE KIDNEY FAILURE, UNSPECIFIED Status: Acute (2) Demand ischemia Code(s): I24.8 - OTHER FORMS OF ACUTE ISCHEMIC HEART DISEASE Status: Acute (3) Hyponatremia Code(s): E87.1 - HYPO-OSMOLALITY AND HYPONATREMIA Status: Acute (4) Sepsis with acute organ dysfunction Code(s): A41.9 - SEPSIS, UNSPECIFIED ORGANISM; R65.20 - SEVERE SEPSIS WITHOUT SEPTIC SHOCK Status: Acute (5) Septic shock Code(s): A41.9 - SEPSIS, UNSPECIFIED ORGANISM; R65.21 - SEVERE SEPSIS WITH SEPTIC SHOCK Status: Acute (6) UTI (urinary tract infection) Status: Acute (7) CAD (coronary artery disease) Code(s): I25.10 - ATHSCL HEART DISEASE OF [place] CORONARY ARTERY W/O ANG PCTRS Status: Chronic Qualifiers: Comment: cabg done in [facility] 2012 (8) CHF (congestive heart failure), NYHA class III Code(s): I50.9 - HEART FAILURE, UNSPECIFIED Status: Chronic Comment: ef of 25%, aicd placed in 12/2017 (9) CKD (chronic kidney disease) stage 3, GFR 30-59 ml/min Code(s): N18.3 - CHRONIC KIDNEY DISEASE, STAGE 3 (MODERATE) Status: Chronic (10) COPD (chronic obstructive pulmonary disease) Status: Chronic Qualifiers: Comment: on home oxygen prn (does not use it continuosly) (11) Chronic low back pain Code(s): M54.5 - LOW BACK PAIN; G89.29 - OTHER CHRONIC PAIN Status: Chronic (12) Dyslipidemia Code(s): E78.5 - HYPERLIPIDEMIA, UNSPECIFIED Status: Chronic (13) History of pulmonary embolism Code(s): Z86.711 - PERSONAL HISTORY OF PULMONARY EMBOLISM Status: Chronic Comment: h/o ivc filter (14) Hx of CABG Status: Chronic (15) Microcytic anemia Code(s): D50.9 - IRON DEFICIENCY ANEMIA, UNSPECIFIED Status: Chronic (16) Parkinson disease Code(s): G20 - PARKINSON'S DISEASE Status: Chronic (17) Type 2 diabetes mellitus Status: Chronic Qualifiers: - Plan cont current plan of care, continue antibiotics * cog negative staph is contaminant * continue levaquin and rocephin, * dc vancomycin * dc humalog * medication reviewed as below * symptomatic treatment * discharge soon. Review of Systems - Review of Systems Eyes: negative: Pain, Vision Change, Conjunctivae Inflammation, Eyelid Inflammation, Redness, Other ENT: negative: Ear Pain, Ear Discharge, Nose Pain, Nose Discharge, Nose Congestion, Mouth Pain, Mouth Swelling, Throat Pain, Throat Swelling, Other Respiratory: negative: Cough, Dry, Shortness of Breath, Hemoptysis, SOB with Excertion, Pleuritic Pain, Sputum, Wheezing Cardiovascular: negative: chest pain, palpitations, orthopnea, paroxysmal nocturnal dyspnea, edema, light headedness, other Gastrointestinal: negative: Nausea, Vomiting, Abdominal Pain, Diarrhea, Constipation, Melena, Hematochezia, Other Genitourinary: negative: Dysuria, Frequency, Incontinence, Hematuria, Retention , Other Musculoskeletal: negative: Neck Pain, Shoulder Pain, Arm Pain, Back Pain, Hand Pain, Leg Pain, Foot Pain, Other Skin: negative: Rash, Lesions, Howie, Bruising, Other - Medications/Allergies Allergies/Adverse Reactions: Allergies Allergy/AdvReac Type Severity Reaction Status Date / Time cyclobenzaprine HCl Allergy Verified 02/27/18 03:49 [From Flexeril] iodine Allergy Hives Verified 02/27/18 03:49 latex Allergy Rash Verified 02/27/18 03:49 Medications: Current Medications Acetaminophen (Tylenol) 650 mg PO Q4H PRN PRN Reason: Headache/Fever or Pain Last Admin: 03/09/18 19:10 Dose: 650 mg Hydrocodone Bitart/Acetaminophen ([place] 5/325) 1 tab PO Q4H PRN PRN Reason: Moderate Pain (4-6) Last Admin: 03/10/18 22:30 Dose: 1 tab Al Hydroxide/Mg Hydroxide (Maalox) 30 ml PO Q6H PRN PRN Reason: Heartburn or Indigestion Albuterol/Ipratropium (Duoneb) 3 ml NEB [id number] [facility] Last Admin: 03/11/18 06:51 Dose: 3 ml Artificial Tears (Tears Naturale) 0 drop EA EYE PRN PRN PRN Reason: Dry Eyes Aspirin (Ecotrin) 325 mg PO DAILY [facility] Last Admin: 03/11/18 08:36 Dose: 325 mg Atorvastatin Calcium (Lipitor) 40 mg PO DAILY [facility] Last Admin: 03/11/18 08:36 Dose: 40 mg Carbidopa/Levodopa (Sinemet Cr 50/200) 0.5 tab PO DAILY [facility] Last Admin: 03/11/18 08:36 Dose: 0.5 tab Dextrose/Water (Dextrose 50%) 25 gm SLOW IVP PRN PRN PRN Reason: Hypoglycemia Enoxaparin Sodium (Lovenox) 40 mg SC 0900 [facility] Last Admin: 03/11/18 08:38 Dose: 40 mg Ferrous Sulfate (Feosol) 325 mg PO QAM-WM [facility] Last Admin: 03/11/18 08:36 Dose: 325 mg Glucagon (Glucagon) 1 mg IM PRN PRN PRN Reason: Hypoglycemia Guaifenesin (Robitussin Sf) 200 mg PO Q4H PRN PRN Reason: Cough Dextrose/Water (D5w) 1,000 mls @ 0 mls/hr IV .Q0M PRN; As Directed PRN Reason: Hypoglycemia Levofloxacin 500 mg/ Device 100 mls @ 100 mls/hr IVPB Q24HR [facility] Last Admin: 03/11/18 08:40 Dose: 100 mls Ceftriaxone Sodium 1 gm/ (Sodium Chloride) 100 mls @ 200 mls/hr IVPB Q24HR [facility] Last Admin: 03/11/18 05:25 Dose: 100 mls Insulin Glargine 50 units/ (Miscellaneous Medication) 0.5 mls @ 0 mls/hr SC BID [facility] Last Admin: 03/11/18 08:39 Dose: Not Given Vancomycin HCl 1 gm/ Device 200 mls @ 200 mls/hr IVPB 1000,2200 [facility] Last Admin: 03/11/18 10:37 Dose: 200 mls Insulin Human Lispro (Humalog) 0 units SC .MODERATE SLIDING SC PRN PRN Reason: Moderate Correctional Scale Last Admin: 03/09/18 15:36 Dose: 6 unit Insulin Human Lispro (Humalog) 0 units SC .BEDTIME SLIDING SC PRN PRN Reason: Bedtime Correctional Scale Loperamide HCl (Imodium) 2 mg PO PRN PRN PRN Reason: Diarrhea/Loose Stools Loratadine (Claritin) 10 mg PO DAILYPRN PRN PRN Reason: Sinus Symptoms Magnesium Hydroxide (Milk Of Magnesium) 30 ml PO DAILYPRN PRN PRN Reason: Constipation Mineral Oil/White Petrolatum (Eucerin Cream) 0 gm TOP BIDPRN PRN PRN Reason: Dry Skin Miscellaneous Medication (Pharmacy To Dose) 1 each IVPB ASDIR [facility] Multivitamins (Theragran) 1 tab PO DAILY [facility] Last Admin: 03/11/18 08:39 Dose: 1 tab Ondansetron HCl (Zofran Odt) 4 mg PO Q6H PRN PRN Reason: Nausea/Vomiting Ondansetron HCl (Zofran) 4 mg IVP Q6H PRN PRN Reason: Nausea/Vomiting Pantoprazole Sodium (Protonix) 40 mg PO BID [facility] Last Admin: 03/11/18 08:39 Dose: 40 mg Phenol (Chloraseptic [place] 180 Ml Bot) 0 ml PO PRN PRN PRN Reason: Sore Throat Ranolazine (Ranexa) 500 mg PO BID [facility] Last Admin: 03/11/18 08:39 Dose: 500 mg Saccharomyces Boulardii (Florastor) 250 mg PO DAILY [facility] Last Admin: 03/11/18 08:39 Dose: 250 mg Senna (Senokot) 2 tab PO HSPRN PRN PRN Reason: Constipation Sertraline HCl (Zoloft) 100 mg PO DAILY [facility] Last Admin: 03/11/18 08:39 Dose: 100 mg Sodium Chloride ([place] Nasal [place] 0.65%) 0 ml EA NARE QIDPRN PRN PRN Reason: Nasal Congestion Sodium Chloride (Flush - Normal Saline) 10 ml IVF Q12HR [facility] Last Admin: 03/11/18 08:40 Dose: 10 ml Sodium Chloride (Flush - Normal Saline) 10 ml IVF PRN PRN PRN Reason: Saline Flush Zolpidem Tartrate (Ambien) 5 mg PO HSPRN PRN PRN Reason: Insomnia
--- NOTE | 2018-03-11 12:16 | DIS ---
DATE OF ADMISSION: 03/09/2018 DATE OF DISCHARGE: 03/11/2018 PRIMARY CARE PHYSICIAN: Dr. [place]. DISCHARGE DISPOSITION: Home. PRIMARY DISCHARGE DIAGNOSES: Septic shock resolved, sepsis with acute organ dysfunction, acute kidne y failure, demand ischemia of myocardium, hyponatremia, urinary tract infection due to Escherichia co li. SECONDARY DISCHARGE DIAGNOSES: Diabetes type 2, Parkinson's disease, microcytic anemia, history of C ABG, history of pulmonary embolism, dyslipidemia, chronic obstructive pulmonary disease, chronic kidn ey disease stage 3, chronic low back pain, chronic diastolic heart failure, and coronary artery disea se. PRIMARY PROCEDURES/OPERATIONS: Central line placement. RADIOLOGICAL INVESTIGATION: Chest x-ray normal. SIGNIFICANT LABORATORY DATA: WBC 7.7, hemoglobin 8.2, and platelet 156. Sodium 135, creatinine 1.11 . LFT normal, cortisol 6.60. Urine culture grew E. coli. Blood culture was coagulase negative whic h was contaminant. DISCHARGE MEDICATIONS: Aspirin 325 mg p.o. daily, Lipitor 40 mg p.o. daily, Sinemet CR 25/100 one ta blet daily, Coreg 3.125 mg p.o. b.i.d., ferrous sulfate 325 mg p.o. daily, Lasix 40 mg p.o. daily, Hu malog insulin as per sliding scale, [place] 10 one tablet q.i.d. p.r.n., DuoNeb q.i.d. p.r.n., Imdur 60 mg daily, Levemir 15 units subcu b.i.d., Levaquin 500 mg p.o. daily for 10 days, lisinopril 5 mg p.o . daily, multivitamin 1 tablet p.o. daily, nitroglycerin 0.4 mg sublingual p.r.n., Protonix 40 mg p.o . b.i.d., Ranexa 500 mg p.o. b.i.d., Florastor 250 mg p.o. daily for 10 days, Zoloft 100 mg p.o. nirmala y, and Spiriva 18 mcg inhalation b.i.d. CONTRAINDICATIONS: None. CODE STATUS: FULL CODE. INPATIENT ANSWERING SERVICE AGENT: Dr. Mcdonald was following while in hospital. TEST RESULTS PENDING ON DISCHARGE: None. ALLERGIES: FLEXERIL, IODINE, and LATEX. DISCHARGE PLAN: Post hospital, patient will follow up with Dr. Swapnil Tapia in 1 week. HOSPITAL COURSE: A 72-year-old male who was initially evaluated at [facility] where he was hypotensive and he was found with urinary tract infection. He was septic. He was given broa d spectrum antibiotic and he was transferred to our emergency room. He was on dopamine, but his bloo d pressure was still low and that is why he required central line placement and Levophed drip was sta rted. After that, patient's blood pressure was significantly improved. He was admitted in ICU. Dr. Mcdonald saw this patient. We treated him with broad spectrum antibiotic therapy with Rocephin, Levaqui n, and vancomycin. Subsequently, his urine culture came back positive for E. coli and his blood cult ure 1 out of 2 was positive for coagulase negative Staph aureus which was contaminant. We transferre d him to medical floor. The patient had dramatic improvement while in hospital. With antibiotic the rapy on discharge, we changed to p.o. Levaquin for another 10 days. This patient had 1-time hypoglycemia episode and that is why we advised him to monitor his blood suga r at home and he should use Humalog as per sliding scale and he will continue Levemir insulin as per home dosage. We continued all medication upon discharge. While in hospital, because of low blood pressure, we hav e to hold all his medicine, but by the time of discharge he is stable and he can resume all his home medication. The patient is afebrile for 48 hours. He is tolerating p.o. well. He is ambulatory and he wants to go home. The patient is seen and examined at bedside today. Please see my progress note from today for further details. The patient is medically stable for discharge today.
[2018-03-11] MEDS: HumaLOG 300 UNITS/3 ML VIAL SC PRN ×2 (12:25→17:02)
[2018-03-11] MEDS: Acetaminophen 325 MG TAB PO PRN (17:02)
[2018-03-11] MEDS: HYDROcodone/Acetaminophen 5/325 mg Tablet PO PRN (21:27)
[2018-03-12] MEDS: cefTRIAXone\\ROCEPHIN 1 GM in Sodium Chloride 0.9% 100 ML IVPB SCH (06:21)
[2018-03-12 08:07] VITALS: BMI 29.2
[2018-03-12] MEDS: Enoxaparin Sodium 40 MG/0.4 ML SYRINGE SC SCH (09:42)
[2018-03-12] MEDS: Saccharomyces boulardii 250 MG CAP PO SCH (09:42)
[2018-03-12] MEDS: Ferrous Sulfate 325 MG TAB PO SCH (09:43)
[2018-03-12] MEDS: Aspirin 325 mg Enteric Coated Tablet PO SCH (09:43)
[2018-03-12] MEDS: Atorvastatin Calcium 40 MG TAB PO SCH (09:43)
[2018-03-12] MEDS: Multivit, Therapeutic 1 TAB PO SCH (09:43)
[2018-03-12] MEDS: Insulin Glargine 50 UNITS in Pre-Filled Syringe 1 EACH SC SCH ×2 (09:44→20:36)
--- NOTE | 2018-03-12 11:03 | PDOC.PN ---
- Subjective Encounter Start Date: 03/12/18 Encounter Start Time: 10:00 Subjective: feels better, sitting in chair -: is amb in room - Objective Resuscitation Status: Resuscitation Status FULL:Full Resuscitation MAR Reviewed: Yes Vital Signs & Weight: Vital Signs (12 hours) Temp Pulse Resp BP Pulse Ox 03/12/18 07:58 98.8 F 91 18 109/58 L 100 03/12/18 06:41 98 03/12/18 06:36 89 16 98 03/11/18 23:30 98.6 F 101 H 16 92/56 L 97 Weight Weight 181 lb 14.454 oz Most Recent Monitor Data Heart Rate from ECG 94 NIBP 121/68 NIBP BP-Mean 77 Respiration from ECG 21 SpO2 99 I&O: 03/11/18 03/12/18 03/13/18 06:59 06:59 06:59 Intake Total 550 240 Balance 550 240 Result Diagrams: 03/10/18 05:37 03/10/18 05:37 Additional Labs: Accuchecks 03/12/18 03/11/18 03/11/18 06:21 20:35 15:59 POC Glucose 169 H 175 H 224 H 03/11/18 11:20 POC Glucose 345 H Phys Exam - Physical Examination HEENT: PERRLA, moist MMs Neck: no JVD, supple Respiratory: no wheezing, no rales rhonchi+ Cardiovascular: RRR, no significant murmur Gastrointestinal: soft, non-tender, positive bowel sounds Musculoskeletal: no edema, pulses present Neurological: non-focal, moves all 4 limbs Psychiatric: A&O x 3 Dx/Plan (1) Sepsis with acute organ dysfunction Code(s): A41.9 - SEPSIS, UNSPECIFIED ORGANISM; R65.20 - SEVERE SEPSIS WITHOUT SEPTIC SHOCK Status: Acute (2) UTI (urinary tract infection) Status: Acute Qualifiers: Urinary tract infection type: acute cystitis Hematuria presence: without hematuria Qualified Code(s): N30.00 - Acute cystitis without hematuria (3) CAD (coronary artery disease) Code(s): I25.10 - ATHSCL HEART DISEASE OF [place] CORONARY ARTERY W/O ANG PCTRS Status: Chronic Qualifiers: Coronary Disease-Associated Artery/Lesion type: bypass graft [place] vs. transplanted heart: [place] heart Associated angina: without angina Qualified Code(s): I25.810 - Atherosclerosis of coronary artery bypass graft(s) without angina pectoris Comment: cabg done in [facility] 2012 (4) COPD (chronic obstructive pulmonary disease) Status: Chronic Qualifiers: COPD type: chronic bronchitis Chronic bronchitis type: unspecified Qualified Code(s): J42 - Unspecified chronic bronchitis Comment: on home oxygen prn (does not use it continuosly) (5) Dyslipidemia Code(s): E78.5 - HYPERLIPIDEMIA, UNSPECIFIED Status: Chronic (6) Parkinson disease Code(s): G20 - PARKINSON'S DISEASE Status: Chronic (7) Type 2 diabetes mellitus Status: Chronic Qualifiers: Diabetes mellitus manager terminal insulin use: with manager terminal use Diabetes mellitus complication status: without complication Qualified Code(s): E11.9 - Type 2 diabetes mellitus without complications; Z79.4 - [facility] (current) use of insulin; Z79.4 - exterminator termite (current) use of insulin; Z79.4 - exterminator termite ( current) use of insulin; Z79.4 - exterminator termite (current) use of insulin - Plan is on ceftriaxone -: continue asp, lipitor and sinemet -: lantus 50u bid -: dc plan in am -: to amb as tolerated * . Review of Systems - Medications/Allergies Allergies/Adverse Reactions: Allergies Allergy/AdvReac Type Severity Reaction Status Date / Time cyclobenzaprine HCl Allergy Verified 02/27/18 03:49 [From Flexeril] iodine Allergy Hives Verified 02/27/18 03:49 latex Allergy Rash Verified 02/27/18 03:49 Medications: Current Medications Acetaminophen (Tylenol) 650 mg PO Q4H PRN PRN Reason: Headache/Fever or Pain Last Admin: 03/11/18 17:02 Dose: 650 mg Hydrocodone Bitart/Acetaminophen ([place] 5/325) 1 tab PO Q4H PRN PRN Reason: Moderate Pain (4-6) Last Admin: 03/11/18 21:27 Dose: 1 tab Al Hydroxide/Mg Hydroxide (Maalox) 30 ml PO Q6H PRN PRN Reason: Heartburn or Indigestion Albuterol/Ipratropium (Duoneb) 3 ml NEB [id number] [facility] Last Admin: 03/12/18 06:36 Dose: 3 ml Artificial Tears (Tears Naturale) 0 drop EA EYE PRN PRN PRN Reason: Dry Eyes Aspirin (Ecotrin) 325 mg PO DAILY [facility] Last Admin: 03/12/18 09:43 Dose: 325 mg Atorvastatin Calcium (Lipitor) 40 mg PO DAILY [facility] Last Admin: 03/12/18 09:43 Dose: 40 mg Carbidopa/Levodopa (Sinemet Cr 50/200) 0.5 tab PO DAILY [facility] Last Admin: 03/11/18 08:36 Dose: 0.5 tab Dextrose/Water (Dextrose 50%) 25 gm SLOW IVP PRN PRN PRN Reason: Hypoglycemia Enoxaparin Sodium (Lovenox) 40 mg SC 0900 [facility] Last Admin: 03/12/18 09:42 Dose: 40 mg Ferrous Sulfate (Feosol) 325 mg PO QAM[facility] Last Admin: 03/12/18 09:43 Dose: 325 mg Glucagon (Glucagon) 1 mg IM PRN PRN PRN Reason: Hypoglycemia Guaifenesin (Robitussin Sf) 200 mg PO Q4H PRN PRN Reason: Cough Dextrose/Water (D5w) 1,000 mls @ 0 mls/hr IV .Q0M PRN; As Directed PRN Reason: Hypoglycemia Levofloxacin 500 mg/ Device 100 mls @ 100 mls/hr IVPB Q24HR [facility] Last Admin: 03/11/18 08:40 Dose: 100 mls Ceftriaxone Sodium 1 gm/ (Sodium Chloride) 100 mls @ 200 mls/hr IVPB Q24HR [facility] Last Admin: 03/12/18 06:21 Dose: 100 mls Insulin Glargine 50 units/ (Miscellaneous Medication) 0.5 mls @ 0 mls/hr SC BID [facility] Last Admin: 03/12/18 09:44 Dose: 0.5 mls Vancomycin HCl 1 gm/ Device 200 mls @ 200 mls/hr IVPB 1000,2200 [facility] Last Admin: 03/11/18 21:31 Dose: 200 mls Insulin Human Lispro (Humalog) 0 units SC .MODERATE SLIDING SC PRN PRN Reason: Moderate Correctional Scale Last Admin: 03/11/18 17:02 Dose: 4 unit Insulin Human Lispro (Humalog) 0 units SC .BEDTIME SLIDING SC PRN PRN Reason: Bedtime Correctional Scale Loperamide HCl (Imodium) 2 mg PO PRN PRN PRN Reason: Diarrhea/Loose Stools Loratadine (Claritin) 10 mg PO DAILYPRN PRN PRN Reason: Sinus Symptoms Magnesium Hydroxide (Milk Of Magnesium) 30 ml PO DAILYPRN PRN PRN Reason: Constipation Mineral Oil/White Petrolatum (Eucerin Cream) 0 gm TOP BIDPRN PRN PRN Reason: Dry Skin Miscellaneous Medication (Pharmacy To Dose) 1 each IVPB ASDIR [facility] Multivitamins (Theragran) 1 tab PO DAILY [facility] Last Admin: 03/12/18 09:43 Dose: 1 tab Ondansetron HCl (Zofran Odt) 4 mg PO Q6H PRN PRN Reason: Nausea/Vomiting Ondansetron HCl (Zofran) 4 mg IVP Q6H PRN PRN Reason: Nausea/Vomiting Pantoprazole Sodium (Protonix) 40 mg PO BID [facility] Last Admin: 03/12/18 09:43 Dose: 40 mg Phenol (Chloraseptic [place] 180 Ml Bot) 0 ml PO PRN PRN PRN Reason: Sore Throat Last Admin: 03/11/18 17:25 Dose: 2 sprays Ranolazine (Ranexa) 500 mg PO BID [facility] Last Admin: 03/11/18 21:31 Dose: 500 mg Saccharomyces Boulardii (Florastor) 250 mg PO DAILY [facility] Last Admin: 03/12/18 09:42 Dose: 250 mg Senna (Senokot) 2 tab PO HSPRN PRN PRN Reason: Constipation Sertraline HCl (Zoloft) 100 mg PO DAILY [facility] Last Admin: 03/12/18 09:42 Dose: 100 mg Sodium Chloride ([place] Nasal [place] 0.65%) 0 ml EA NARE QIDPRN PRN PRN Reason: Nasal Congestion Sodium Chloride (Flush - Normal Saline) 10 ml IVF Q12HR [facility] Last Admin: 03/12/18 06:09 Dose: Not Given Sodium Chloride (Flush - Normal Saline) 10 ml IVF PRN PRN PRN Reason: Saline Flush Zolpidem Tartrate (Ambien) 5 mg PO HSPRN PRN PRN Reason: Insomnia Last Admin: 03/11/18 21:27 Dose: 5 mg
[2018-03-12] MEDS: Carbidopa/Levodopa CR 50-200 mg Tablet PO SCH (11:06)
[2018-03-12] MEDS: HumaLOG 300 UNITS/3 ML VIAL SC PRN ×2 (11:24→16:06)
[2018-03-12] MEDS: HYDROcodone/Acetaminophen 5/325 mg Tablet PO PRN ×2 (13:14→20:41)
[2018-03-12] MEDS: Vancomycin HCl 1 GM in Premix Bag 1 BAG IVPB SCH (13:15)
[2018-03-13 00:22] LABS: Vancomycin, Trough 11.2 ug/mL
[2018-03-13] MEDS ORDERED: Vancomycin HCl 1 GM in Premix Bag 1 BAG IVPB SCH (01:00)
[2018-03-13] MEDS: cefTRIAXone\\ROCEPHIN 1 GM in Sodium Chloride 0.9% 100 ML IVPB SCH (05:16)
[2018-03-13] MEDS: Ferrous Sulfate 325 MG TAB PO SCH (08:29)
[2018-03-13] MEDS: Atorvastatin Calcium 40 MG TAB PO SCH (08:29)
[2018-03-13] MEDS: Carbidopa/Levodopa CR 50-200 mg Tablet PO SCH (08:30)
[2018-03-13] MEDS: Aspirin 325 mg Enteric Coated Tablet PO SCH (08:31)
[2018-03-13] MEDS: Multivit, Therapeutic 1 TAB PO SCH (08:31)
[2018-03-13] MEDS: Acetaminophen 325 MG TAB PO PRN (08:37)
[2018-03-13] MEDS: Enoxaparin Sodium 40 MG/0.4 ML SYRINGE SC SCH (08:38)
[2018-03-13] MEDS: Insulin Glargine 50 UNITS in Pre-Filled Syringe 1 EACH SC SCH ×2 (08:39→20:14)
[2018-03-13] MEDS: Saccharomyces boulardii 250 MG CAP PO SCH (09:06)
--- NOTE | 2018-03-13 10:11 | PDOC.PN ---
- Subjective Encounter Start Date: 03/13/18 Encounter Start Time: 08:40 Subjective: feels better -: is ambulating in room, no dizziness - Objective Resuscitation Status: Resuscitation Status FULL:Full Resuscitation MAR Reviewed: Yes Vital Signs & Weight: Vital Signs (12 hours) Temp Pulse Resp BP Pulse Ox 03/13/18 07:53 98.0 F 86 18 98 03/13/18 07:51 98.0 F 86 18 119/59 L 98 03/13/18 07:12 98 03/13/18 07:09 88 18 98 Weight Weight 181 lb 14.102 oz Most Recent Monitor Data Heart Rate from ECG 94 NIBP 121/68 NIBP BP-Mean 77 Respiration from ECG 21 SpO2 99 I&O: 03/12/18 03/13/18 03/14/18 06:59 06:59 06:59 Intake Total 240 Balance 240 Result Diagrams: 03/10/18 05:37 03/10/18 05:37 Additional Labs: Accuchecks 03/13/18 03/12/18 03/12/18 05:17 20:34 16:04 POC Glucose 135 H 210 H 233 H 03/12/18 11:16 POC Glucose 228 H Phys Exam - Physical Examination HEENT: PERRLA, moist MMs Neck: no JVD, supple Respiratory: no wheezing, no rales Cardiovascular: RRR, no significant murmur Gastrointestinal: soft, non-tender, positive bowel sounds Musculoskeletal: no edema, pulses present Neurological: non-focal, moves all 4 limbs Psychiatric: normal affect, A&O x 3 Dx/Plan (1) Sepsis with acute organ dysfunction Code(s): A41.9 - SEPSIS, UNSPECIFIED ORGANISM; R65.20 - SEVERE SEPSIS WITHOUT SEPTIC SHOCK Status: Acute (2) UTI (urinary tract infection) Status: Acute Qualifiers: Urinary tract infection type: acute cystitis Hematuria presence: without hematuria Qualified Code(s): N30.00 - Acute cystitis without hematuria (3) CAD (coronary artery disease) Code(s): I25.10 - ATHSCL HEART DISEASE OF [place] CORONARY ARTERY W/O ANG PCTRS Status: Chronic Qualifiers: Coronary Disease-Associated Artery/Lesion type: bypass graft [place] vs. transplanted heart: [place] heart Associated angina: without angina Qualified Code(s): I25.810 - Atherosclerosis of coronary artery bypass graft(s) without angina pectoris Comment: cabg done in [facility] 2013 (4) COPD (chronic obstructive pulmonary disease) Status: Chronic Qualifiers: COPD type: chronic bronchitis Chronic bronchitis type: unspecified Qualified Code(s): J42 - Unspecified chronic bronchitis Comment: on home oxygen prn (does not use it continuosly) (5) Dyslipidemia Code(s): E78.5 - HYPERLIPIDEMIA, UNSPECIFIED Status: Chronic (6) Parkinson disease Code(s): G20 - PARKINSON'S DISEASE Status: Chronic (7) Type 2 diabetes mellitus Status: Chronic Qualifiers: Diabetes mellitus fdc insulin use: with fdc use Diabetes mellitus complication status: without complication Qualified Code(s): E11.9 - Type 2 diabetes mellitus without complications; Z79.4 - long term care pharmacist (current) use of insulin; Z79.4 - long term care pharmacist (current) use of insulin; Z79.4 - retirement ( current) use of insulin; Z79.4 - long term care pharmacist (current) use of insulin - Plan change antibiotics to oral levaquin -: is off iv fluids from yesterday -: BP a bit labile, if he is persistently above 120 sbp may dc home -: only on ranexa, no other cardiac meds due to labile BP * . Review of Systems - Medications/Allergies Allergies/Adverse Reactions: Allergies Allergy/AdvReac Type Severity Reaction Status Date / Time cyclobenzaprine HCl Allergy Verified 02/27/18 03:49 [From Flexeril] iodine Allergy Hives Verified 02/27/18 03:49 latex Allergy Rash Verified 02/27/18 03:49 Medications: Current Medications Acetaminophen (Tylenol) 650 mg PO Q4H PRN PRN Reason: Headache/Fever or Pain Last Admin: 03/13/18 08:37 Dose: 650 mg Hydrocodone Bitart/Acetaminophen ([place] 5/325) 1 tab PO Q4H PRN PRN Reason: Moderate Pain (4-6) Last Admin: 03/12/18 20:41 Dose: 1 tab Al Hydroxide/Mg Hydroxide (Maalox) 30 ml PO Q6H PRN PRN Reason: Heartburn or Indigestion Albuterol/Ipratropium (Duoneb) 3 ml NEB [id number] ABIMAEL Last Admin: 03/13/18 07:09 Dose: 3 ml Artificial Tears (Tears Naturale) 0 drop EA EYE PRN PRN PRN Reason: Dry Eyes Aspirin (Ecotrin) 325 mg PO DAILY [facility] Last Admin: 03/13/18 08:31 Dose: 325 mg Atorvastatin Calcium (Lipitor) 40 mg PO DAILY [facility] Last Admin: 03/13/18 08:29 Dose: 40 mg Carbidopa/Levodopa (Sinemet Cr 50/200) 0.5 tab PO DAILY [facility] Last Admin: 03/13/18 08:30 Dose: 0.5 tab Dextrose/Water (Dextrose 50%) 25 gm SLOW IVP PRN PRN PRN Reason: Hypoglycemia Enoxaparin Sodium (Lovenox) 40 mg SC 0900 [facility] Last Admin: 03/13/18 08:38 Dose: Not Given Ferrous Sulfate (Feosol) 325 mg PO QAM[facility] Last Admin: 03/13/18 08:29 Dose: 325 mg Glucagon (Glucagon) 1 mg IM PRN PRN PRN Reason: Hypoglycemia Guaifenesin (Robitussin Sf) 200 mg PO Q4H PRN PRN Reason: Cough Dextrose/Water (D5w) 1,000 mls @ 0 mls/hr IV .Q0M PRN; As Directed PRN Reason: Hypoglycemia Insulin Glargine 50 units/ (Miscellaneous Medication) 0.5 mls @ 0 mls/hr SC BID [facility] Last Admin: 03/13/18 08:39 Dose: Not Given Insulin Human Lispro (Humalog) 0 units SC .MODERATE SLIDING SC PRN PRN Reason: Moderate Correctional Scale Last Admin: 03/12/18 16:06 Dose: 4 unit Insulin Human Lispro (Humalog) 0 units SC .BEDTIME SLIDING SC PRN PRN Reason: Bedtime Correctional Scale Levofloxacin (Levaquin) 500 mg PO 0600 [facility] Levofloxacin (Levaquin) 500 mg PO 1100 [facility] Stop: 03/13/18 12:00 Loperamide HCl (Imodium) 2 mg PO PRN PRN PRN Reason: Diarrhea/Loose Stools Loratadine (Claritin) 10 mg PO DAILYPRN PRN PRN Reason: Sinus Symptoms Magnesium Hydroxide (Milk Of Magnesium) 30 ml PO DAILYPRN PRN PRN Reason: Constipation Mineral Oil/White Petrolatum (Eucerin Cream) 0 gm TOP BIDPRN PRN PRN Reason: Dry Skin Multivitamins (Theragran) 1 tab PO DAILY [facility] Last Admin: 03/13/18 08:31 Dose: 1 tab Ondansetron HCl (Zofran Odt) 4 mg PO Q6H PRN PRN Reason: Nausea/Vomiting Ondansetron HCl (Zofran) 4 mg IVP Q6H PRN PRN Reason: Nausea/Vomiting Pantoprazole Sodium (Protonix) 40 mg PO BID [facility] Last Admin: 03/13/18 08:31 Dose: 40 mg Phenol (Chloraseptic [place] 180 Ml Bot) 0 ml PO PRN PRN PRN Reason: Sore Throat Last Admin: 03/11/18 17:25 Dose: 2 sprays Ranolazine (Ranexa) 500 mg PO BID [facility] Last Admin: 03/13/18 08:29 Dose: 500 mg Saccharomyces Boulardii (Florastor) 250 mg PO DAILY [facility] Last Admin: 03/13/18 09:06 Dose: Not Given Senna (Senokot) 2 tab PO HSPRN PRN PRN Reason: Constipation Sertraline HCl (Zoloft) 100 mg PO DAILY [facility] Last Admin: 03/13/18 08:30 Dose: 100 mg Sodium Chloride ([place] Nasal [place] 0.65%) 0 ml EA NARE QIDPRN PRN PRN Reason: Nasal Congestion Sodium Chloride (Flush - Normal Saline) 10 ml IVF Q12HR [facility] Last Admin: 03/13/18 09:06 Dose: Not Given Sodium Chloride (Flush - Normal Saline) 10 ml IVF PRN PRN PRN Reason: Saline Flush Zolpidem Tartrate (Ambien) 5 mg PO HSPRN PRN PRN Reason: Insomnia Last Admin: 03/11/18 21:27 Dose: 5 mg
[2018-03-13] MEDS: HumaLOG 300 UNITS/3 ML VIAL SC PRN ×2 (12:05→16:55)
[2018-03-13] MEDS: HYDROcodone/Acetaminophen 5/325 mg Tablet PO PRN (20:16)
[2018-03-13] MEDS: Carvedilol 3.125 MG TAB PO SCH (20:17)
[2018-03-14] MEDS: HYDROcodone/Acetaminophen 5/325 mg Tablet PO PRN (01:33)
[2018-03-14 08:07] VITALS: BP 148/65; TEMP 96.3
[2018-03-14] MEDS: Atorvastatin Calcium 40 MG TAB PO SCH (08:09)
[2018-03-14] MEDS: Ferrous Sulfate 325 MG TAB PO SCH (08:09)
[2018-03-14] MEDS: Saccharomyces boulardii 250 MG CAP PO SCH (08:09)
[2018-03-14] MEDS: Aspirin 325 mg Enteric Coated Tablet PO SCH (08:09)
[2018-03-14] MEDS: Carvedilol 3.125 MG TAB PO SCH (08:09)
[2018-03-14] MEDS: Multivit, Therapeutic 1 TAB PO SCH (08:09)
[2018-03-14] MEDS: Enoxaparin Sodium 40 MG/0.4 ML SYRINGE SC SCH (08:10)
[2018-03-14] MEDS: Carbidopa/Levodopa CR 50-200 mg Tablet PO SCH (08:13)
[2018-03-14] MEDS: Insulin Glargine 50 UNITS in Pre-Filled Syringe 1 EACH SC SCH (08:14)
[2018-03-14] MEDS ORDERED: Lisinopril 5 MG TAB PO SCH (09:00)
--- NOTE | 2018-03-14 09:46 | PDOC.PN ---
- Subjective Encounter Start Date: 03/14/18 Encounter Start Time: 08:00 Subjective: feels good, wants to go home -: is amb with his in hallway and room - Objective Resuscitation Status: Resuscitation Status FULL:Full Resuscitation MAR Reviewed: Yes Vital Signs & Weight: Vital Signs (12 hours) Temp Pulse Resp BP Pulse Ox 03/14/18 08:09 90 03/14/18 08:00 96.3 F L 90 16 148/65 H 03/14/18 07:48 91 16 96 03/14/18 03:27 98.5 F 85 16 99/56 L 03/13/18 23:02 82 18 98 Weight Weight 181 lb 14.102 oz Most Recent Monitor Data Heart Rate from ECG 94 NIBP 121/68 NIBP BP-Mean 77 Respiration from ECG 21 SpO2 99 Result Diagrams: 03/10/18 05:37 03/10/18 05:37 Additional Labs: Accuchecks 03/14/18 03/13/18 03/13/18 05:40 20:11 16:35 POC Glucose 162 H 181 H 248 H 03/13/18 11:56 POC Glucose 184 H Phys Exam - Physical Examination HEENT: PERRLA, moist MMs Neck: no JVD, supple Respiratory: no wheezing, no rales Cardiovascular: RRR, no significant murmur Gastrointestinal: soft, non-tender, positive bowel sounds Musculoskeletal: no edema, pulses present Neurological: non-focal, moves all 4 limbs Psychiatric: normal affect, A&O x 3 Dx/Plan (1) Sepsis with acute organ dysfunction Code(s): A41.9 - SEPSIS, UNSPECIFIED ORGANISM; R65.20 - SEVERE SEPSIS WITHOUT SEPTIC SHOCK Status: Resolved (2) UTI (urinary tract infection) Status: Acute Qualifiers: Urinary tract infection type: acute cystitis Hematuria presence: without hematuria Qualified Code(s): N30.00 - Acute cystitis without hematuria (3) CAD (coronary artery disease) Code(s): I25.10 - ATHSCL HEART DISEASE OF [place] CORONARY ARTERY W/O ANG PCTRS Status: Chronic Qualifiers: Coronary Disease-Associated Artery/Lesion type: bypass graft [place] vs. transplanted heart: [place] heart Associated angina: without angina Qualified Code(s): I25.810 - Atherosclerosis of coronary artery bypass graft(s) without angina pectoris Comment: cabg done in [facility] 2012 (4) COPD (chronic obstructive pulmonary disease) Status: Chronic Qualifiers: COPD type: chronic bronchitis Chronic bronchitis type: unspecified Qualified Code(s): J42 - Unspecified chronic bronchitis Comment: on home oxygen prn (does not use it continuosly) (5) Dyslipidemia Code(s): E78.5 - HYPERLIPIDEMIA, UNSPECIFIED Status: Chronic (6) Parkinson disease Code(s): G20 - PARKINSON'S DISEASE Status: Chronic (7) Type 2 diabetes mellitus Status: Chronic Qualifiers: Diabetes mellitus director long term care insulin use: with director long term care use Diabetes mellitus complication status: without complication Qualified Code(s): E11.9 - Type 2 diabetes mellitus without complications; Z79.4 - retirement (current) use of insulin; Z79.4 - retirement (current) use of insulin; Z79.4 - retirement ( current) use of insulin; Z79.4 - retirement (current) use of insulin - Plan hemostable -: dc pt home -: to check bp and pulse twice daily x 10 days to f/u with PCP * .
--- NOTE | 2018-03-15 00:26 | DIS ---
DATE OF ADMISSION: 03/09/2018 DATE OF DISCHARGE: 03/14/2018 DISCHARGE DISPOSITION: To home. BRIEF COURSE DURING HOSPITALIZATION: Please note Dr. Bonilla's discharge summary dictated on 018. The patient essentially remained in the hospital for hypotension with initial diagnosis of seps is and urinary tract infection. He was closely monitored for another 48 hours. He has remained hemo dynamically stable. His cardiac medications have been slowly added to his current regimen. The yoan ent is ambulating well on the floor with his . He is also tolerating oral solid diet. He needs to continue Levaquin as prescribed for his urinary tract infection. The patient also needs to follow up with his primary care physician in 1 week. Please see a [id number] or the day of discharge. Please also see Dr. Bonilla's dictation done on 03/11/2018 for a complete d escription.
== END 2018-03-14 13:39 | disposition home or self-care (01) | DRG 871 ==
LOC: ERS 05:17 → CCU 06:46 → 2NO 16:34 → ONC 03-11 09:34
PROVIDERS: ADMIT Internal Medicine; ATTEND Internal Medicine
DX: A41.9 Sepsis, unspecified organism (principal); R65.21 Severe sepsis with septic shock; I50.22 Chronic systolic (congestive) heart failure; J96.10 Chronic respiratory failure, unspecified whether with hypoxia or hypercapnia; N39.0 Urinary tract infection, site not specified; N17.9 Acute kidney failure, unspecified; I24.8 Other forms of acute ischemic heart disease; E87.1 Hypo-osmolality and hyponatremia; I25.10 Atherosclerotic heart disease of native coronary artery without angina pectoris; J44.9 Chronic obstructive pulmonary disease, unspecified; E11.9 Type 2 diabetes mellitus without complications; E78.5 Hyperlipidemia, unspecified; I11.0 Hypertensive heart disease with heart failure; K21.9 Gastro-esophageal reflux disease without esophagitis; F41.9 Anxiety disorder, unspecified; F32.9 Major depressive disorder, single episode, unspecified; Z86.718 Personal history of other venous thrombosis and embolism; Z99.81 Dependence on supplemental oxygen; Z95.1 Presence of aortocoronary bypass graft; Z95.5 Presence of coronary angioplasty implant and graft; Z88.8 Allergy status to other drugs, medicaments and biological substances
CPT/HCPCS: 36415; 36416; 36556; 71045; 80053; 80202; 82533; 83735; 85025; 93005; 94640; 96361; 96365; 96374; 96375; A4216; G8978-GP-CK; G8979-GP-CK; G8980-GP-CK; J0696; J1650; J1956; J2060; J3370; J7050; J7620; Q0162

== ENCOUNTER 2018-08-29 13:02 | Day surgery (SDC) | payer MEDICARE ==
[2018-08-26 09:05] VITALS: BMI 29.8
[2018-08-29] MEDS ORDERED: Heparin 10,000 UNITS/1 ML VIAL ONE (13:09)
[2018-08-29] MEDS ORDERED: Lidocaine 1% (PF) 30 ML VIAL ONE (13:09)
[2018-08-29 14:02] LABS: #Eosinphils 0.1 thou/uL (0.0-0.7); #Lymphocytes 1.2 thou/uL (1.20-3.40); #Monocytes 0.2 thou/uL (0.11-0.59); #Neutrophils 9.1 thou/uL (1.40-6.50); %Basophils 0.3 % (0.0-1.0); %Eosinophils 0.5 % (0.0-10.0); %Lymphocytes 11.4 % (21.0-51.0); %Neutrophils 85.8 % (42.0-75.0); Hemoglobin 12.4 g/dL (14.0-18.0); Mean Corpuscular HGB CONC 31.9 g/dL (32.0-36.0); Mean Corpuscular Hemoglobin 25.5 pg (27.0-31.0); Mean Platelet Volume 9.6 fL (7.4-10.4); Platelet Count 202 thou/uL (130-400); Red Blood Cell (RBC) Count 4.88 mill/uL (4.70-6.10); White Blood Cell (WBC) Count 10.6 thou/uL (4.8-10.8)
[2018-08-29] MEDS ORDERED: PHENYLEPHRINE-NS 100 MCG/ML 10 ML SYRINGE ONE (14:03)
[2018-08-29] MEDS ORDERED: PROPOFOL 200 MG/20 ML VIAL ONE (14:03)
[2018-08-29] MEDS ORDERED: Lidocaine 1% PF 5 ML VIAL ONE (14:03)
[2018-08-29 14:17] LABS: Anion Gap 14 mmol/L (10-20); BUN (Urea Nitrogen) 31 mg/dL (8.4-25.7); Calc. Creatinine Clearance 55 mL/min (70-130); Calcium 9.6 mg/dL (7.8-10.44); Carbon Dioxide 29 mmol/L (23-31); Chloride 93 mmol/L (98-107); Estimated GFR-MDRD 48; Glucose 386 mg/dL (83-110); Sodium 131 mmol/L (136-145)
[2018-08-29] MEDS ORDERED: Phenylephrine HCL 10 MG/ML VIAL ONE (14:18)
[2018-08-29] MEDS ORDERED: Fentanyl 100 MCG/2 ML VIAL ONE (14:23)
[2018-08-29] MEDS ORDERED: Propofol 500 MG/50 ML VIAL ONE (14:23)
[2018-08-29] MEDS ORDERED: Insulin Regular 300 UNITS/3 ML VIAL ONE ×2 (14:40→14:46)
[2018-08-29 14:54] LABS: PTT 27.8 SEC (22.9-36.1); Prothrombin Time 13.4 SEC (12.0-14.7)
[2018-08-29] MEDS ORDERED: Isoproterenol 0.2 MG/1 ML AMP ONE (16:10)
--- NOTE | 2018-08-31 21:46 | EKG ---
Test Reason : PREOP Blood Pressure : / mmHG Vent. Rate : 089 BPM Atrial Rate : 089 BPM P-R Int : 186 ms QRS Dur : 122 ms QT Int : 396 ms P-R-T Axes : 044 064 084 degrees QTc Int : 481 ms Sinus rhythm with occasional Premature ventricular complexes Possible Left atrial enlargement Possible Inferior infarct , age undetermined Cannot rule out Anterior infarct (cited on or before 30-SEP-2012) Abnormal ECG When compared with ECG of 09-MAR-2018 05:27, Premature ventricular complexes are now Present QRS duration has decreased T wave inversion no longer evident in Inferior leads Confirmed by Franny JURADO ([id number]) on 08/31/2018 9:46:40 PM Referred By: CAIT Confirmed By:Franny JURADO
--- NOTE | 2018-09-01 16:34 | OP ---
DATE OF PROCEDURE: 08/29/2018 TYPE OF STUDY: Electrophysiology study and radiofrequency ablation. REASON FOR PROCEDURE: Mr. Phillips is a 72-year-old man with history of CHF and ischemic cardiomyopathy. He has frequent rapid 1:1 tachyarrhythmias documented by his ICDs, which seemed to respond to ventricular ATP therapy. The intracardiac electrogram was suggestive of supraventricular tachycardia; here for EP study and evaluate, and treat the tachyarrhythmia. DESCRIPTION OF PROCEDURE: The patient received sedation by Anesthesia specialist. After adequate level of sedation achieved, the right femoral venous area was prepped, draped and anesthetized using subcutaneous lidocaine. Under fluoroscopic guidance, octapolar and decapolar EP catheter was advanced to the right atrium, right ventricle, His bundle and also to the CS position with close attention was paid to crossing the IVC filter to avoid dislodgement. The following findings were noted. Baseline rhythm is sinus rhythm with cycle length of 663 milliseconds. QRS duration is 120 milliseconds, QTc is 30 milliseconds, AH 90 milliseconds, HV 71 milliseconds noted. The sinus node recovery time is 1036. Corrected sinus node recovery time was 373 milliseconds. AV Wenckebach cycle length was 380 milliseconds. The VA Wenckebach cycle length was 380 milliseconds. Concentric retrograde VA conduction was seen. The AV lupe ERP was less than 600 /340 milliseconds at 30 cycle length. 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 The AV lupe reentrant tachycardia cycle length was 430 milliseconds to 440 milliseconds in cycle length. The His bundle preceded the ventricular complexes and the VA timing was 88 milliseconds. The tachycardia was paced terminated from both the atrium and ventricle. Attempted ventricular override pacing was terminating the arrhythmia. The AVNRT was inducible both with burst atrial pacing as well as from atrial extrastimuli testing. Following that, the His catheter was exchanged to a 4 mm quadripolar ablation catheter. This was used to obtain a 3D map of the right atrium was delineated. Following that, slow pathway ablation was performed with total of two lesions with total ablation time of 1 minute and 39 seconds delivered. During the second lesion, prolonged periods of junctional beats were seen. No AV or VA block is documented. Following that, we attempted reinduction of the tachyrhythmia, but it was unsuccessful. The AV Wenckebach cycle length was changed 410 milliseconds and the AV-ERP was 600/360 milliseconds. Isuprel was administered and repeat induction maneuvers were attempted failing to initiate the arrhythmia. The patient tolerated the procedure well. Cardiac silhouette did not change pre and post procedure and overall no complication noted. The IVC filter was rechecked and it was not changed. Also, the ICD was programmed to VVI backup pacing at 40 beats per minute, which was also the final programming as well. No ventricular capture or sensing changes were noted. The ICD was turned back on. CONCLUSION: 1. Typical AV lupe reentrant tachycardia, inducible. 2. Successful slow pathway modification eliminated inducibility of the tachycardia. 3. Initial dual AV lupe physiology eliminated by the slow pathway ablation. 4. No evidence of accessory pathway. 5. Borderline normal sinus node function at 373 milliseconds seen. PLAN: Routine postop care and continue ICD monitoring. Job ID: [id number] [id number]
== END 2018-08-29 20:05 | disposition home or self-care (01) ==
LOC: CCL 13:02
PROVIDERS: ATTEND Internal Medicine Cardiovascular Disease
PROC: 02583ZZ Destruction of Conduction Mechanism, Percutaneous Approach (ICD-10-PCS; principal; 2018-08-29)
PROC: 4A023FZ Measurement of Cardiac Rhythm, Percutaneous Approach (ICD-10-PCS; 2018-08-29)
DX: I47.1 Supraventricular tachycardia (principal); I11.0 Hypertensive heart disease with heart failure; I50.22 Chronic systolic (congestive) heart failure; I25.5 Ischemic cardiomyopathy; I25.10 Atherosclerotic heart disease of native coronary artery without angina pectoris; Z79.4 Long term (current) use of insulin; Z79.82 Long term (current) use of aspirin; Z79.899 Other long term (current) drug therapy; Z88.0 Allergy status to penicillin; Z88.8 Allergy status to other drugs, medicaments and biological substances; Z91.040 Latex allergy status; Z91.041 Radiographic dye allergy status; Z95.1 Presence of aortocoronary bypass graft; Z95.810 Presence of automatic (implantable) cardiac defibrillator; Z95.828 Presence of other vascular implants and grafts
CPT/HCPCS: 36415; 36416; 76942; 80048; 85025; 85610; 85730; 93005; 93010; 93613; 93623; 93653; C1730; C1769; J1644; J1815; J2001; J2370; J2704; J3010